=== PATIENT | female | born 1950 | race Caucasian/White ===

== ENCOUNTER 2017-11-09 10:00 | Day surgery (SDC) | payer MEDICARE, OTHER ==
[~2017-11-09] VITALS: Ht 157.5 cm; Wt 69.0 kg
[~2017-11-09 10:00] MED LIST: ALBU90OI INH; ATOR10; ATOR20 PO; CAND32 PO; CEPH500 PO; CLOP75 PO; CYCL10 PO; Cilostazol50 MG PO; DIAZ5 PO; DOCU100 PO; ELIQUIS5 M1 PO; FURO20 PO; FURO40 PO; GEMF600 PO; HYDACE5 PO; HYDGUAL120 PO; Isosorbide Dini30 MG PO; LABE100 PO; LEVFLO500 PO; LEVO750 PO; LIDO5TO TOP; METF500 PO; METO100ER PO; METO50ER; METO50ER PO; MULTIVITAMINS; NITR.4SL SL; Nitrostat0.4 MG SL; ONDA4 PO; OXYC10TA19 PO; OXYC15ER PO; POTA10T PO; POTCHL20ER PO; PRED10 PO; PRED20 PO; Prednisone20 MG PO; RANO500T; RANO500T PO; SIME80CH PO; SPIHYD; SPIR25 UD; TIOT18 INH; TOLT2ER PO; TORSE20 PO
[2017-11-09] MEDS ORDERED: CLOP75 (14:53)
== END 2017-11-09 18:55 | disposition home or self-care (01) ==
LOC: MHTC 10:00 → PCU 15:32 → MHTC 18:55
PROC: B211YZZ Fluoroscopy of Multiple Coronary Arteries using Other Contrast (ICD-10-PCS; principal; 2017-11-09)
PROC: 4A023N7 Measurement of Cardiac Sampling and Pressure, Left Heart, Percutaneous Approach (ICD-10-PCS; principal; 2017-11-09)
PROC: B212YZZ Fluoroscopy of Single Coronary Artery Bypass Graft using Other Contrast (ICD-10-PCS; principal; 2017-11-09)
PROC: B218YZZ Fluoroscopy of Left Internal Mammary Bypass Graft using Other Contrast (ICD-10-PCS; principal; 2017-11-09)
DX: I25.118 Atherosclerotic heart disease of native coronary artery with other forms of angina pectoris (principal); I25.718 Atherosclerosis of autologous vein coronary artery bypass graft(s) with other forms of angina pectoris; E78.00 Pure hypercholesterolemia, unspecified; I10 Essential (primary) hypertension; F17.210 Nicotine dependence, cigarettes, uncomplicated; J44.9 Chronic obstructive pulmonary disease, unspecified
CPT/HCPCS: 36221; 82947; 85347; 92978; 93459; 99152; 99153; C1725; C1753; C1769; C1874; C1894; C9604; J1644; J2250; J2270; J3010; J7030; J7040; Q9967

== ENCOUNTER 2018-03-16 20:54 | Emergency (ER) | payer MEDICARE, OTHER ==
[~2018-03-16] VITALS: Ht 157.5 cm; Wt 68.0 kg
[~2018-03-16 20:54] MED LIST changes: +CLOP75
[2018-03-16] MEDS ORDERED: CLOP75 PO (21:11)
[2018-03-16] MEDS ORDERED: Omeprazole20 M1 (21:12)
[2018-03-16] MEDS ORDERED: HYDCHL25 PO (21:12)
== END 2018-03-16 21:25 | disposition home or self-care (01) ==
LOC: ER 20:54
DX: S61.432A Puncture wound without foreign body of left hand, initial encounter (principal); W26.0XXA Contact with knife, initial encounter; Z88.6 Allergy status to analgesic agent; Z91.048 Other nonmedicinal substance allergy status; Z88.8 Allergy status to other drugs, medicaments and biological substances; Z88.1 Allergy status to other antibiotic agents; Z88.5 Allergy status to narcotic agent; Z79.899 Other long term (current) drug therapy; Z79.84 Long term (current) use of oral hypoglycemic drugs; I11.0 Hypertensive heart disease with heart failure; I50.9 Heart failure, unspecified; I25.10 Atherosclerotic heart disease of native coronary artery without angina pectoris; F17.200 Nicotine dependence, unspecified, uncomplicated
CPT/HCPCS: 90471; 90714; 99282

== ENCOUNTER → 2019-02-11 | Outpatient (CLI) | payer MEDICARE, OTHER ==
[~2019-02-11] MED LIST changes: +HYDCHL25 PO; +Omeprazole20 M1
[2019-02-11 10:38] LABS: Source, Urine Clean Catch
[2019-02-11 13:13] LABS: Bilirubin, Urine Neg (Neg); Blood, Urine 1+ (Neg); Glucose Qualitative, Urine Neg (Neg); Ketones, Urine Neg (Neg); Leukocyte Esterase, Urine Neg (Neg); Nitrite, Urine Neg (Neg); Protein, Urine 2+ (Neg); Urobilinogen, Urine NORM (Normal)
[2019-02-11 14:18] LABS: Appearance, Urine Clear (Clear); Color, Urine Yellow (P-Yellow)
[2019-02-11 14:21] LABS: Bacteria Rare /hpf; Red Blood Cells, Urine 0-2 /hpf (0-2); Squamous Epithelial Cells Many /hpf (Few); White Blood Cells, Urine 0-2 /hpf (0-5)
== END | disposition home or self-care (01) ==
LOC: LAB SHORT 10:37 → LAB 10:37
PROVIDERS: Urology
DX: R30.0 Dysuria (principal)
CPT/HCPCS: 81001; 87086

== ENCOUNTER → 2019-02-15 | Outpatient (CLI) | payer MEDICARE, OTHER ==
[2019-02-15 10:53] LABS: Source, Urine Clean Catch
[2019-02-15 12:50] LABS: Bilirubin, Urine Neg (Neg); Blood, Urine 1+ (Neg); Glucose Qualitative, Urine Neg (Neg); Ketones, Urine Neg (Neg); Leukocyte Esterase, Urine Neg (Neg); Nitrite, Urine Neg (Neg); Protein, Urine 1+ (Neg); Urobilinogen, Urine NORM (Normal)
[2019-02-15 12:59] LABS: Appearance, Urine Clear (Clear); Color, Urine Yellow (P-Yellow)
[2019-02-15 13:01] LABS: Bacteria Few /hpf; Squamous Epithelial Cells Few /hpf (Few); White Blood Cells, Urine 0-2 /hpf (0-5)
== END | disposition home or self-care (01) ==
LOC: LAB 10:51 → LAB SHORT 10:51
PROVIDERS: Urology
DX: R30.0 Dysuria (principal)
CPT/HCPCS: 81001; 87086

== ENCOUNTER 2019-08-14 21:08 | Inpatient (IN) | payer MEDICARE, OTHER ==
[~2019-08-14] VITALS: Ht 157.5 cm; Wt 74.9 kg
[~2019-08-14 21:08] MED LIST changes: -ELIQUIS5 M1 PO; +ELIQUIS5 MG PO; +MOTION RELIEF25 MG PO; +OMEPRAZOLE20 MG PO; -Omeprazole20 M1; +SPIR25 PO; -SPIR25 UD
[2019-08-14 21:38] LABS: BASOPHILS ABSOLUTE AUTO 0.05 K/mm3 (0.00-0.23); BASOPHILS PERCENT AUTO 1 % (0-2); EOSINOPHILS ABSOLUTE AUTO 0.32 K/mm3 (0.00-0.68); EOSINOPHILS PERCENT AUTO 4 % (0-6); Hematocrit 45.2 % (33.0-51.0); Hemoglobin 14.3 g/dL (11.5-16.0); IMMATURE GRAN ABSOLUTE AUTO 0.03 K/mm3 (0.00-0.10); IMMATURE GRAN PERCENT AUTO 0 % (0-1); LYMPHOCYTES ABSOLUTE AUTO 2.63 K/mm3 (0.84-5.20); LYMPHOCYTES PERCENT AUTO 33 % (21-46); MONOCYTES ABSOLUTE AUTO 0.54 K/mm3 (0.16-1.47); MONOCYTES PERCENT AUTO 7 % (4-13); Mean Corpuscular HGB 29.3 pg (26.0-34.0); Mean Corpuscular HGB Conc 31.6 g/dL (31.5-36.5); Mean Corpuscular Volume 93 fL (80-100); Mean Platelet Volume 10.6 fL (9.1-12.4); NEUTROPHILS ABSOLUTE AUTO 4.32 K/mm3 (1.96-9.15); NEUTROPHILS PERCENT AUTO 55 % (41-73); Platelet Count 216 K/mm3 (150-400); RDW Coefficient Variation 15.3 % (11.7-14.2); RDW Standard Deviation 52.6 fL (35.1-46.3); Red Blood Cell Count 4.88 M/mm3 (3.80-5.20); White Blood Cell Count 7.89 K/mm3 (4.00-11.30)
[2019-08-14] MEDS ORDERED: PANT40 PO (21:51)
[2019-08-14 21:53] LABS: Alanine Aminotransfer (ALT/SGP 15 U/L (12-78); Albumin, Blood 3.1 g/dL (3.4-5.0); Albumin/Globulin Ratio 0.8 (0.8-1.8); Alk Phos 96 U/L (50-136); Anion Gap 2 mmol/L (6-16); Aspartate Aminotrans (AST/SGOT 23 U/L (12-37); Bilirubin, Total 0.3 mg/dL (0.1-1.0); Blood Urea Nitrogen 16 mg/dL (8-24); Bun/Creatinine Ratio 14.4 (12.0-20.0); CO2, Blood 29 mmol/L (21-32); Calcium, Blood 8.3 mg/dL (8.5-10.1); Chloride, Blood 110 mmol/L (98-108); Creatinine, Blood 1.11 mg/dL (0.40-1.00); Glomerular Filtration Rate 52 (60-); Glucose, Blood 118 mg/dL (70-99); Potassium, Blood 4.6 mmol/L (3.5-5.5); Sodium, Blood 141 mmol/L (136-145); Total Protein, Blood 7.1 g/dL (6.4-8.2); Troponin I <0.015 ng/mL (0.000-0.040)
[2019-08-15 00:28] LABS: International Normalized Ratio 1.01; Prothrombin Time Results 10.8 Sec (9.7-11.5)
--- NOTE | 2019-08-15 08:50 | NUR ---
SHIFT SUMMARY PT A&O; ARRIVED FROM ER VIA STRETCHER AND TRANSFERED SELF TO BED; AMBULATES TO BATHROOM W/ NO DISTURBANCES; INCONTINENT IF WAITS TO LONG; PT ORIENTED TO ROOM AND SANDWICH, PUDDING AND WATER BROUGHT TO PT; HEPARIN GTT INFUSING UPON ARRIVAL PT HAS HX OF DVT; HX CARDIAC INTERVENTIONS- BYPASS; PT GOOD HISTORIAN W/ PAST INTERVENTIONS AND MEDICATIONS; SIGNIFICANT ALLERGY LIST; PT DENIES CHEST PAIN; DENIES NEEDS; CALL LIGHT IN REACH; BED IN LOWEST POSITION; REPORT GIVEN TO DAY SHIFT RN.
--- NOTE | 2019-08-15 20:44 | NUR ---
SHIFT SUMMARY PT REMAINS A&O X4, NO EPISODES OF CP/SOB REPORTED THROUGH THE SHIFT. PT IS ON ROOM AIR, TOLERATING PO INTAKE. HEPARIN GTT INFUSING PER EMAR @ 16 U/KG. PT HAD THE 1ST PORTION OF HER STRESS TEST COMPLETED TODAY WITH NO PROBLEMS, 2ND PORTION TO FOLLOW TOMORROW. PT IS AWARE OF NPO STATUS IN THE AM. PT HAS BEEN SINUS PER THEOLOGY PROFESSOR, HTN NOTED. PT EDUCATION PROVIDED THROUGH THE DAY. REPORT GIVEN TO YASMANY RN. CALL LIGHT IN REACH.
--- NOTE | 2019-08-15 21:28 | NUR ---
PATIENT ANXIOUS - MULTIPLE FRIENDS/FAMILY IN ROOM PATIENT DEMANDED TO GO OUT AND SMOKE. PATIENT EDUCATED THAT WITH A HEPARIN GTT SHE COULD NOT GO OUT AND SMOKE. PATIENT ALSO EDUCATED TO SMOKING CESSATION IT RELATES TO HER CURRENT CHEST PAIN DIAGNOSIS. PATIENT SOB WITH MINIMAL EXCERTION. SAT PATIENT IN CHAIR AND REDIRECTED WITH CONVERSATION. PATIENT COMPLIED AND CALMED WITH THERAPUTIC COMMUNICATION AND REDIRECTION. FAMILY EDUCATED WELL THAT PATIENT COULD NOT GO SMOKE. PRIMARY CARE RN LOOKING INTO NICOTINE PATCH PER PATIENT REQUEST.
--- NOTE | 2019-08-15 22:40 | NUR ---
CARE ASSUMPTION / CALL TO PT A&O X4 W/ EPISODES OF FORGETFULNESS. PT INFORMED THIS NURSE NEW TO PT, W/ PT STATING "THIS MORNING YOU SAID.." AND "WEREN'T YOU THE ONE WHO DID MY MEDS LAST NIGHT?" DESPITE REMINDER OF THIS NURSE NEW TO PT's CARE. PT C/O 03/12 "STERNUM & L LEG" PAIN, MEDICATED PER PT REQUEST/EMAR. PT W/ ELEVATED BP, 200/105 UPON CARE ASSUMPTION. PT MEDICATED W/ SCHEDULED BP MEDICATION & PRN HYDRALAZINE PER EMAR W/ LITTLE CHANGE IN BP. PT ALSO REPORTING SMOKING "ABOUT A PACK A DAY", REQUESTING NICOTINE PATCH. CALL TO MD STEVENS W/ NEW ORDERS TO RESUME PT'S HOME METOPROLOL, SEE EMAR, AND NEW ORDER FOR NICOTINE PATCH, SEE EMAR. PT NOW SETTLED IN ROOM, WILL CONTINUE TO MONITOR AND PROVIDE CARE.
[2019-08-16 00:23] LABS: Hematocrit 45.1 % (33.0-51.0); Hemoglobin 14.7 g/dL (11.5-16.0); Mean Corpuscular HGB 29.8 pg (26.0-34.0); Mean Corpuscular HGB Conc 32.6 g/dL (31.5-36.5); Mean Corpuscular Volume 92 fL (80-100); Mean Platelet Volume 10.5 fL (9.1-12.4); Platelet Count 209 K/mm3 (150-400); RDW Standard Deviation 50.8 fL (35.1-46.3); Red Blood Cell Count 4.93 M/mm3 (3.80-5.20); White Blood Cell Count 11.12 K/mm3 (4.00-11.30)
[2019-08-16 00:38] LABS: Calcium, Blood 8.5 mg/dL (8.5-10.1); Creatinine, Blood 1.22 mg/dL (0.40-1.00); Potassium, Blood 3.9 mmol/L (3.5-5.5)
--- NOTE | 2019-08-16 05:12 | NUR ---
SHIFT SUMMARY PT CONTINUES TO BE A&O X4. VSS W/ BP IMPROVEMENT POST TREATMENTS PER EMAR. MONITOR SHOWS SR, HR 70's-90's. NICOTINE PATCH IN PLACE. PT CALM AND ABLE TO SLEEP THIS SHIFT. PT W/ OKAY FOR BREAKFAST THIS AM W/ PLAN TO THEN BE NPO FOR STRESS TEST @ 1400. PT AGREEABLE. WILL CONTINUE TO MONITOR AND PROVIDE CARE UNTIL REPORT OFF TO DAY SHIFT RN.
--- NOTE | 2019-08-16 11:35 | NUR ---
BEDSIDE REPORT REC'D FROM CAITIE BLOUNT. PT AWAKE, A&O, HEPARIN GTT DOSING CONFIRMED. PT DENIES ANY NEEDS AT THIS TIME. CALL LIGHT IN REACH. 0900- AM MEDS GIVEN, BFAST PROVIDED. PT HAS BEEN NPO SINCE 0810. PAIN MEDS GIVEN REQUESTED. 1130-PT NPO FOR 1400 PROCEDURE. HEP GTT RATE CHANGE DONE EARLIER WHEN PHARMACY CALLED. PT AWAKE IN BED WATCHING TV. NADN. CALL LIGHT IN REACH.
--- NOTE | 2019-08-16 14:15 | NUR ---
Echocardiogram completed.
--- NOTE | 2019-08-16 19:00 | NUR ---
REPORT FROM KATHERINE RN. ASSUMED PT CARE. PT FAMILY AT BEDSIDE. DENIES CURRENT NEEDS. PT EATING.
--- NOTE | 2019-08-16 19:19 | NUR ---
PT HAD UNEVENTFUL DAY. STRESS TEST NEG. POSS DC IN AM. PT'S MOOD ALL OVER THE PLACE TODAY BEFORE AND AFTER VISIT FROM SO. PT DENIED REGULAR INTAKE OF ETOH, BUT MANNERISMS APPEARED SIMILAR TO ETOH WD. VERY SLEEPY THIS AFTERNOON. NO CHANGES, NO CP. MED TWICE FOR REGULAR STERNAL AND LEG PAIN. BEDSIDE REPORT GIVEN TO ANDREINA BLOUNT. CALL LIGHT IN REACH. DAUGHTER AT BEDSIDE.
--- NOTE | 2019-08-16 20:25 | NUR ---
VSS. ASSESSMENT CHARTED. PT DENIES PAIN. STATES SHE HAD A VERY LONG DAY TODAY. PT EATING WELL AND INDEPENDENT IN ROOM. MEDS GIVEN PER EMAR.
--- NOTE | 2019-08-16 22:46 | NUR ---
PT APPEARS TO BE SLEEPING IN POSITION OF COMFORT. RESP EVEN AND NON LABORED. LIGHTS ARE OFF. DOOR SHUT FOR NOISE CONTROL.
--- NOTE | 2019-08-17 05:45 | NUR ---
SHIFT SUMMARY PT ALERT AND ORIENTED WHEN AWAKE, VSS. REMAINS ON RA. PT HAD UNEVENTFUL NIGHT. INDEPENDENT IN ROOM. HEPARIN STILL INFUSING PER PHARMACY. PT DENIES SOB/CP. PLAN FOR POSS DC HOME TODAY.
[2019-08-17] MEDS ORDERED: CARV25 PO (09:28)
[2019-08-17] MEDS ORDERED: GUAI600T33 PO (09:28)
[2019-08-17] MEDS ORDERED: BENZ100A PO (09:28)
[2019-08-17] MEDS ORDERED: Prednisone10 MG PO (09:29)
[2019-08-17] MEDS ORDERED: ALBU90OI INH (09:36)
--- NOTE | 2019-08-17 10:40 | NUR ---
BEDSIDE REPORT FROM NEENA BLOUNT. LIGHTS OFF, PT APPEARS TO BE SLEEPING. HEP GTT COMPLETE. CALLED DR. VILLALOBOS HEP DC'D. VSS. BP ELEVATED. COREG INCREASED. INCREASED DOSE GIVEN THIS AM. DC PLANNED THIS AM. TELE OFF FOR SHOWER. IV DC'D AT 0900. AM MEDS GIVEN. DISCHARGE INFO COMPLETE. WRITEN AND VERBAL INSTRUCTIONS ISSUED AND REVIEWED UNTIL PT STATED UNDERSTANDING OF MED CHANGES. RIDE ON HIS WAY. CONFIRMED NICOTINE PATCH OFF AND DECLINED NEW PATCH. DISCUSSED SMOKING CESSATION IN ADDITION TO WRITTEN INSTRUCIONS. PT DID NOT DISPLAY DESIRE TO QUIT. PT ESCORTED TO ENTRANCE VIA WC BY JAYA WITH ALL BELONGINGS AT 1006, NADN.
== END 2019-08-17 10:06 | disposition home or self-care (01) | DRG 305 ==
LOC: ER 21:08 → PCU 23:11 → ERHOLD 23:11 → PCU 08-15 02:22
PROVIDERS: Emergency Medicine; Internal Medicine; ADMIT Hospitalist
DX: I16.0 Hypertensive urgency (principal); I50.32 Chronic diastolic (congestive) heart failure; J44.1 Chronic obstructive pulmonary disease with (acute) exacerbation; I82.412 Acute embolism and thrombosis of left femoral vein; N17.9 Acute kidney failure, unspecified; Z95.1 Presence of aortocoronary bypass graft; E78.5 Hyperlipidemia, unspecified; I11.0 Hypertensive heart disease with heart failure; F17.210 Nicotine dependence, cigarettes, uncomplicated; E11.51 Type 2 diabetes mellitus with diabetic peripheral angiopathy without gangrene; Z79.84 Long term (current) use of oral hypoglycemic drugs
CPT/HCPCS: 36415; 36416; 71046; 78452; 80048; 80053; 82947; 83690; 83880; 84484; 85025; 85027; 85610; 85730; 93005; 93010; 93017; 93308; 93321; 94660; 94762; 96365; 96366; 96375; 96376; 99285-25; A9500; J0360; J0706; J1644; J1940; J2785; J2930; J7512

== ENCOUNTER 2019-08-25 10:16 | Inpatient (IN) | payer MEDICARE, OTHER ==
[~2019-08-25] VITALS: Ht 157.5 cm; Wt 70.4 kg
[~2019-08-25 10:16] MED LIST changes: +BENZ100A PO; +CARV25 PO; +GUAI600T33 PO; +PANT40 PO; +Prednisone10 MG PO
[2019-08-25 10:44] LABS: BASOPHILS ABSOLUTE AUTO 0.06 K/mm3 (0.00-0.23); BASOPHILS PERCENT AUTO 0 % (0-2); EOSINOPHILS ABSOLUTE AUTO 0.12 K/mm3 (0.00-0.68); EOSINOPHILS PERCENT AUTO 1 % (0-6); Hematocrit 48.7 % (33.0-51.0); Hemoglobin 15.8 g/dL (11.5-16.0); IMMATURE GRAN ABSOLUTE AUTO 0.19 K/mm3 (0.00-0.10); IMMATURE GRAN PERCENT AUTO 1 % (0-1); LYMPHOCYTES ABSOLUTE AUTO 2.59 K/mm3 (0.84-5.20); LYMPHOCYTES PERCENT AUTO 19 % (21-46); MONOCYTES ABSOLUTE AUTO 0.96 K/mm3 (0.16-1.47); MONOCYTES PERCENT AUTO 7 % (4-13); Mean Corpuscular HGB 29.6 pg (26.0-34.0); Mean Corpuscular HGB Conc 32.4 g/dL (31.5-36.5); Mean Corpuscular Volume 91 fL (80-100); Mean Platelet Volume 10.3 fL (9.1-12.4); NEUTROPHILS ABSOLUTE AUTO 9.72 K/mm3 (1.96-9.15); NEUTROPHILS PERCENT AUTO 71 % (41-73); Platelet Count 212 K/mm3 (150-400); RDW Coefficient Variation 15.9 % (11.7-14.2); RDW Standard Deviation 53.1 fL (35.1-46.3); Red Blood Cell Count 5.34 M/mm3 (3.80-5.20); White Blood Cell Count 13.64 K/mm3 (4.00-11.30)
[2019-08-25 11:06] LABS: Alanine Aminotransfer (ALT/SGP 19 U/L (12-78); Albumin, Blood 3.3 g/dL (3.4-5.0); Albumin/Globulin Ratio 0.9 (0.8-1.8); Alk Phos 75 U/L (50-136); Anion Gap 8 mmol/L (6-16); Aspartate Aminotrans (AST/SGOT 14 U/L (12-37); Bilirubin, Total 0.8 mg/dL (0.1-1.0); Blood Urea Nitrogen 33 mg/dL (8-24); Bun/Creatinine Ratio 22.3 (12.0-20.0); CO2, Blood 26 mmol/L (21-32); Calcium, Blood 8.2 mg/dL (8.5-10.1); Chloride, Blood 100 mmol/L (98-108); Creatinine, Blood 1.48 mg/dL (0.40-1.00); Globulin, Blood 3.6 g/dL (2.2-4.0); Glomerular Filtration Rate 37 (60-); Glucose, Blood 207 mg/dL (70-99); Potassium, Blood 4.3 mmol/L (3.5-5.5); Sodium, Blood 134 mmol/L (136-145); Total Protein, Blood 6.9 g/dL (6.4-8.2); Troponin I <0.015 ng/mL (0.000-0.040)
[2019-08-25 11:43] LABS: Prothrombin Time Results 10.7 Sec (9.7-11.5)
[2019-08-25] MEDS ORDERED: B-121000 MC3 PO (13:10)
[2019-08-25] MEDS ORDERED: MOTION RELIEF25 MG PO (15:45)
[2019-08-25] MEDS ORDERED: PANT40 PO (15:48)
--- NOTE | 2019-08-25 16:33 | NUR ---
INFORMED DR. KWAN THAT PATIENT HAS SHINGLES ON HER R BUTTOCKS AND R FLANK. PATIENT REPORTS "I GET THESE EVERY ONCE IN A WHILE". DR. KWAN ALSO INFORMED THAT PATIENT'S MED REC IS NOW COMPLETE.
--- NOTE | 2019-08-25 17:19 | NUR ---
REPORT GIVEN TO ASSUMING NURSE, MATEO ARTEAGA.
[2019-08-25 18:45] LABS: Source, Urine Clean Catch
[2019-08-25 18:49] LABS: Bilirubin, Urine Neg (Neg); Blood, Urine Neg (Neg); Glucose Qualitative, Urine Neg (Neg); Ketones, Urine Neg (Neg); Leukocyte Esterase, Urine Neg (Neg); Nitrite, Urine Neg (Neg); Protein, Urine Neg (Neg); Urobilinogen, Urine NORM (Normal); pH, Urine 6.5 (5.0-8.0)
[2019-08-25 18:58] LABS: Appearance, Urine Clear (Clear); Color, Urine Yellow (P-Yellow)
--- NOTE | 2019-08-25 19:15 | NUR ---
PT ALERT, RESTING IN BED, DENIES PAIN. NO DRIPS.
--- NOTE | 2019-08-25 19:45 | NUR ---
CARE ASSUMED AT 1720. PT AWAKE IN BED VISITING AT THIS TIME. PT DENIED C/O PAIN. PT STATED THAT SHE WAS FATIGUED AND DESCRIBED GENERALIZED MALAISE. "SHINGLES" ASSESSED. SMALL 1CM BLISTER TO RIGHT BUTTOCK WITH SMALL AMT OF REDNESS AND WARM CIRCLING BLISTER. THIS SORE LOOKS ALMOST LIKE A SMALL ABCESS. URINE SAMPLE SENT WELL PCR/RESP SAMPLE. PT SBA TO TOILET. VSS. O2 PLACED ON PT AROUND 1730 FOR SOME DESATURATION INTO 80'S WHILE SLEEPING ONLY. REPORT GIVEN TO MIAH BLOUNT AT 1920.
[2019-08-25 22:03] LABS: Adenovirus Not Detected (NOT DETECT); Coronavirus 229E Not Detected (NOT DETECT); Coronavirus HKU1 Not Detected (NOT DETECT); Coronavirus NL63 Not Detected (NOT DETECT); Coronavirus OC43 Not Detected (NOT DETECT); Human Metapneumovirus Not Detected (NOT DETECT); Human Rhinovirus/Enterovirus Not Detected (NOT DETECT)
[2019-08-25 22:04] LABS: Bordetella pertussis Not Detected (NOT DETECT); Chlamydophila pneumoniae Not Detected (NOT DETECT); Influenza A Not Detected (NOT DETECT); Influenza A/2009-H1 Not Detected (NOT DETECT); Influenza A/H1 Not Detected (NOT DETECT); Influenza A/H3 Not Detected (NOT DETECT); Influenza B Detected (NOT DETECT); Mycoplasma pneumoniae Not Detected (NOT DETECT); Parainfluenza Virus 1 Not Detected (NOT DETECT); Parainfluenza Virus 2 Not Detected (NOT DETECT); Parainfluenza Virus 3 Not Detected (NOT DETECT); Parainfluenza Virus 4 Not Detected (NOT DETECT); Respiratory Syncytial Virus Not Detected (NOT DETECT)
[2019-08-26 03:53] LABS: BASOPHILS ABSOLUTE AUTO 0.03 K/mm3 (0.00-0.23); BASOPHILS PERCENT AUTO 0 % (0-2); EOSINOPHILS PERCENT AUTO 1 % (0-6); Hematocrit 45.6 % (33.0-51.0); Hemoglobin 14.4 g/dL (11.5-16.0); IMMATURE GRAN ABSOLUTE AUTO 0.16 K/mm3 (0.00-0.10); IMMATURE GRAN PERCENT AUTO 1 % (0-1); LYMPHOCYTES ABSOLUTE AUTO 2.54 K/mm3 (0.84-5.20); LYMPHOCYTES PERCENT AUTO 23 % (21-46); MONOCYTES ABSOLUTE AUTO 0.92 K/mm3 (0.16-1.47); MONOCYTES PERCENT AUTO 8 % (4-13); Mean Corpuscular HGB 29.4 pg (26.0-34.0); Mean Corpuscular HGB Conc 31.6 g/dL (31.5-36.5); Mean Corpuscular Volume 93 fL (80-100); Mean Platelet Volume 10.2 fL (9.1-12.4); NEUTROPHILS ABSOLUTE AUTO 7.55 K/mm3 (1.96-9.15); NEUTROPHILS PERCENT AUTO 67 % (41-73); Platelet Count 179 K/mm3 (150-400); RDW Coefficient Variation 15.9 % (11.7-14.2); RDW Standard Deviation 54.4 fL (35.1-46.3)
[2019-08-26 04:19] LABS: Albumin, Blood 2.8 g/dL (3.4-5.0); Albumin/Globulin Ratio 0.9 (0.8-1.8); Bilirubin, Total 0.8 mg/dL (0.1-1.0); Bun/Creatinine Ratio 24.2 (12.0-20.0); Calcium, Blood 8.1 mg/dL (8.5-10.1); Creatinine, Blood 1.24 mg/dL (0.40-1.00); Globulin, Blood 3.2 g/dL (2.2-4.0); Potassium, Blood 4.3 mmol/L (3.5-5.5)
--- NOTE | 2019-08-26 08:02 | NUR ---
PT ALERT, FOLLOWS COMMANDS ABLE TO AMBULATE TO TOILET. PAIN CONTROLLED WITH TING OXY. PT MAINTAINED SATS ON 3L O2 OVERNIGHT. NO ACUTE EVENT WILL CONTINUE TO MONITOR
--- NOTE | 2019-08-26 09:00 | NUR ---
ASSUMED CARE RECIEVED REPORT FROM MINE BOOTHE. I TOOK OVER CARE DUE TO THE HIGH ACUITY OF TL'S TWO OTHER PATIENTS. PT IS AWAKE IN BED, A & O X 4. SHE DENIES PAIN AFTER RECEIVING HER SCHEDULED OXYCODONE. SHE HAS SCD'S ON. SHE IS IN SINUS RHYTHM WITH STABLE VITALS. SHE IS ON 2L NC STARTING OUT BUT COMPLAINS OF SOB, SATS ARE 94%+. BED LOW AND LOCKED. CALL LIGHT WITHIN REACH.
--- NOTE | 2019-08-26 19:07 | NUR ---
SHIFT SUMMARY PT REMAINS ALERT AND ORIENTED X 4. SHE IS ON 2L NC, SATING MID TO HIGH 90'S. SHE IS IN SINUS RHYTHM WITH A RATE IN THE 60'S, BLOOD PRESSURE STARTED OUT LOWER FOR HER BASELINE, BUT HER LAST SBP WAS IN THE 140'S WHICH PT STATES IS CLOSER TO HER BASELINE. SHE STATES SHE FEELS BETTER, CHEST PAIN HAS SUBSIDED FOR NOW, AND HER LEFT LEG WAS BOTHERING HER TOO (SHE BELIEVES THIS IS FROM NEUROPATHY), BUT IS BEING TREATED ADEQUETLY WITH THE OXY. HER COMPLAINT TODAY WAS SOB, DESPITE HAVING GOOD O2 SATS. HER LUNGS SOUND CLEAR AND DIMINISHED, OCCASIONAL WHEEZES. RESPIRATORY TREATMENTS HAVE BEEN OFFERING SOME RELIEF, BUT NOT MUCH SHE STATES. SHE HAD A BATH TODAY. SHE COMPLAINS OF NUMBNESS IN HER TOES. BED LOW AND LOCKED. CALL LIGHT WITHIN REACH.
--- NOTE | 2019-08-26 20:00 | NUR ---
ASSUMED CARE OF PATIENT AT 1915. REPORT RECEIVED AT BEDSIDE. PT PRESENTS IN BED. ALERT AND ORIENTED. PT HAS BEEN ABLE TO GET UP IN ROOM INDEPENDENTLY. VOIDS Q.S. PT IN NO APPARENT DISTRESS AT THIS TIME. TEACHING DONE ON DISEASE PROCESS, DIABETES, BLOOD PRESSURES, AND DIET. WILL REVIEW CHART AND PLAN OF CARE FOR THIS PT.
[2019-08-27 03:30] LABS: BASOPHILS ABSOLUTE AUTO 0.03 K/mm3 (0.00-0.23); BASOPHILS PERCENT AUTO 0 % (0-2); EOSINOPHILS ABSOLUTE AUTO 0.04 K/mm3 (0.00-0.68); EOSINOPHILS PERCENT AUTO 0 % (0-6); Hematocrit 43.5 % (33.0-51.0); Hemoglobin 13.6 g/dL (11.5-16.0); IMMATURE GRAN ABSOLUTE AUTO 0.07 K/mm3 (0.00-0.10); IMMATURE GRAN PERCENT AUTO 1 % (0-1); LYMPHOCYTES ABSOLUTE AUTO 1.67 K/mm3 (0.84-5.20); LYMPHOCYTES PERCENT AUTO 13 % (21-46); MONOCYTES ABSOLUTE AUTO 0.88 K/mm3 (0.16-1.47); MONOCYTES PERCENT AUTO 7 % (4-13); Mean Corpuscular HGB 29.1 pg (26.0-34.0); Mean Corpuscular HGB Conc 31.3 g/dL (31.5-36.5); Mean Corpuscular Volume 93 fL (80-100); Mean Platelet Volume 10.1 fL (9.1-12.4); NEUTROPHILS ABSOLUTE AUTO 10.62 K/mm3 (1.96-9.15); NEUTROPHILS PERCENT AUTO 80 % (41-73); Platelet Count 175 K/mm3 (150-400); RDW Coefficient Variation 15.6 % (11.7-14.2); RDW Standard Deviation 53.5 fL (35.1-46.3); Red Blood Cell Count 4.67 M/mm3 (3.80-5.20); White Blood Cell Count 13.31 K/mm3 (4.00-11.30)
[2019-08-27 03:49] LABS: Albumin, Blood 2.9 g/dL (3.4-5.0); Anion Gap 5 mmol/L (6-16); Blood Urea Nitrogen 28 mg/dL (8-24); CO2, Blood 29 mmol/L (21-32); Calcium, Blood 8.6 mg/dL (8.5-10.1); Chloride, Blood 102 mmol/L (98-108); Creatinine, Blood 1.12 mg/dL (0.40-1.00); Glomerular Filtration Rate 51 (60-); Glucose, Blood 137 mg/dL (70-99); Magnesium, Blood 2.3 mg/dL (1.6-2.4); Phosphorus, Blood 3.4 mg/dL (2.5-4.9); Potassium, Blood 4.5 mmol/L (3.5-5.5); Sodium, Blood 136 mmol/L (136-145)
--- NOTE | 2019-08-27 06:36 | NUR ---
PT HAD AN EPISODE DURING THE NIGHT WHERE SHE DECIDED TO TAKE OFF HER OXYGEN. ON ROOM AIR SHE DESATURATED TO 79 PERCENT. REPLACED OXYGEN, AND INCREASED FLOW TO 4 L/M. PT ALSO ENCOURAGED TO COUGH DEEPLY. PT SATURATIONS INCREASED TO > 90 PERCENT. HAS NOT REMOVED HER OXYGEN AFTER THIS. WILL CONTINUE TO MONITOR PT, AND WILL REPORT OFF TO ONCOMING RN.
--- NOTE | 2019-08-27 08:02 | NUR ---
ASSUMED CARE RECIEVED REPORT FROM MINE HUITRON. PT IS LYING IN BED ALERT AND ORIENTED, AND IS COMPLAINING OF CP AND LEFT LEG NEUROPATHIC PAIN. WILL MEDICATE. PT IS IN SINUS RHYTHM, RATE IN THE 60'S, STABLE BP. SHE IS ON 2L NC, SATING 95%. BED LOW AND LOCKED. CALL LIGHT WITHIN REACH.
--- NOTE | 2019-08-27 18:33 | NUR ---
SHIFT SUMMARY PT HAD A GOOD DAY, NO ACUTE EVENTS. PT WAS OFF OXYGEN FOR MAJORITY OF DAY SAT'ING 92-94%, LESS DYSPNEIC THAN USUAL. ALTHOUGH DURING HER LATE AFTERNOON NAP SHE DE-SATTED AND REQUIRED 2LNC WHILE ASLEEP. HER PAIN HAS BEEN ADEQUETLY CONTROLLED WITH HER SCHEDULED OXYCODONE. SHE IS ALERT AND ORIENTED X 4, WITH A LITTLE LETHARGY. SHE CONTINUES TO STATE THAT SHE "DOESNT QUITE FEEL LIKE HERSELF" SHE SOMETIMES HAS TROUBLE THINKING CLEARLY. 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 PEARLA. SHE IS EATING 40-70% OF HER MEALS, DRINKING PLENTY OF FLUIDS. BED LOW AND LOCKED. CALL LIGHT WITHIN REACH.
--- NOTE | 2019-08-27 19:56 | NUR ---
ASSUMPTION OF CARE ASSUMED CARE OF PT @ 1900, PT RESTING IN BED, AROUSES TO VERBAL STIMULI, ORIENTED TO SELF, PLACE, SITUATION FAMILY AND FOLLOWING DIRECTIONS. SOME CONFUSION AND SHORT TERM MEMORY DEFECITS NOTED, REPORT FROM DAYSHIFT STATES PT RECEIVED DOSE OF BENADRYL ADMINISTERED @ APPROX 1700, MEMORY WAS INTACT AND NO CONFUSION PRIOR TO ADMINISTRATION, WILL CONTINUE TO MONITOR NEURO STATUS. RESPIRATIONS EVEN AND UNLABORED, PT DENIES SOB. HR 60, HTN BUT PT STS CURRENT BP IS NORMAL FOR HER, DENIES SOB. PT STS PAIN TO R BUTTOCKS AT LOCATION OF CURRENT SHINGLES OUTBREAK. PT UP TO BEDSIDE TOILET, SBA. PT DENIES GI/ ISSUES. FAMILY AT BEDSIDE, CALL LIGHT WITHIN REACH.
--- NOTE | 2019-08-27 21:16 | NUR ---
LASIX/TRANSFER OF CARE PT DECLINED 2100 LASIX, STS USUALLY TAKES MEDICATION IN THE AM EVERY OTHER DAY WITH POTASSIUM. PT LEFT ICU @ APPROX 2100 VIA GURNEY TO MEDICAL FLOOR. BEDSIDE REPORT GIVEN TO FREDDIE Reddy, MEDICAL FLOOR RN.
[2019-08-28 05:20] LABS: BASOPHILS ABSOLUTE AUTO 0.02 K/mm3 (0.00-0.23); BASOPHILS PERCENT AUTO 0 % (0-2); EOSINOPHILS PERCENT AUTO 0 % (0-6); Hematocrit 43.2 % (33.0-51.0); Hemoglobin 13.5 g/dL (11.5-16.0); IMMATURE GRAN ABSOLUTE AUTO 0.13 K/mm3 (0.00-0.10); IMMATURE GRAN PERCENT AUTO 1 % (0-1); LYMPHOCYTES ABSOLUTE AUTO 1.56 K/mm3 (0.84-5.20); LYMPHOCYTES PERCENT AUTO 11 % (21-46); MONOCYTES ABSOLUTE AUTO 0.66 K/mm3 (0.16-1.47); MONOCYTES PERCENT AUTO 5 % (4-13); Mean Corpuscular HGB 29.2 pg (26.0-34.0); Mean Corpuscular HGB Conc 31.3 g/dL (31.5-36.5); Mean Corpuscular Volume 94 fL (80-100); Mean Platelet Volume 10.5 fL (9.1-12.4); NEUTROPHILS ABSOLUTE AUTO 12.16 K/mm3 (1.96-9.15); NEUTROPHILS PERCENT AUTO 84 % (41-73); Platelet Count 176 K/mm3 (150-400); RDW Coefficient Variation 15.3 % (11.7-14.2); RDW Standard Deviation 52.6 fL (35.1-46.3); Red Blood Cell Count 4.62 M/mm3 (3.80-5.20); White Blood Cell Count 14.53 K/mm3 (4.00-11.30)
[2019-08-28 05:40] LABS: Albumin/Globulin Ratio 0.8 (0.8-1.8); Bilirubin, Total 0.4 mg/dL (0.1-1.0); Bun/Creatinine Ratio 26.5 (12.0-20.0); Calcium, Blood 8.9 mg/dL (8.5-10.1); Creatinine, Blood 1.13 mg/dL (0.40-1.00); Globulin, Blood 3.9 g/dL (2.2-4.0); Magnesium, Blood 2.2 mg/dL (1.6-2.4); Potassium, Blood 5.1 mmol/L (3.5-5.5); Total Protein, Blood 6.9 g/dL (6.4-8.2)
--- NOTE | 2019-08-28 07:31 | NUR ---
SHIFT SUMMARY PT ARRIVED ON FLOOR IN NO DISTRESS. PT HAD SOME COMPLAINTS OF ITCHINESS AND PO BENEDRYL WAS ORDERED. PT HAS SLEPT WELL W/O ISSUE. PT SLEEPING WITH CALL LIGHT IN REACH.
--- NOTE | 2019-08-28 19:40 | NUR ---
SHIFT SUMMARY: NO ACUTE CHANGES TO REPORT THIS SHIFT. PT A&O; CALM AND COOPERATIVE WITH CARE. MEDICATED FOR PAIN & ITCHING PER EMAR. PT INFLUENZA B POSITIVE; TAMIFLU CONTINUING. REPORT GIVEN TO ONCOMING RN.
--- NOTE | 2019-08-29 05:07 | NUR ---
SHIFT SUMMARY PT HAD NOISSUES NOTED. PT HAS SLEPT WELL SINCE EVENING MEDS. PT FAMILY SHOWERED PT AND VISITED THIS EVENING. PT CURRENTLY SLEEPING AND IN NO DISTRESS. CALL LIGHT IN REACH.
[2019-08-29 05:43] LABS: BASOPHILS ABSOLUTE AUTO 0.03 K/mm3 (0.00-0.23); BASOPHILS PERCENT AUTO 0 % (0-2); EOSINOPHILS ABSOLUTE AUTO 0.01 K/mm3 (0.00-0.68); EOSINOPHILS PERCENT AUTO 0 % (0-6); Hematocrit 46.3 % (33.0-51.0); Hemoglobin 14.6 g/dL (11.5-16.0); IMMATURE GRAN ABSOLUTE AUTO 0.12 K/mm3 (0.00-0.10); IMMATURE GRAN PERCENT AUTO 1 % (0-1); LYMPHOCYTES ABSOLUTE AUTO 1.58 K/mm3 (0.84-5.20); LYMPHOCYTES PERCENT AUTO 12 % (21-46); MONOCYTES ABSOLUTE AUTO 0.61 K/mm3 (0.16-1.47); MONOCYTES PERCENT AUTO 5 % (4-13); Mean Corpuscular HGB 29.4 pg (26.0-34.0); Mean Corpuscular HGB Conc 31.5 g/dL (31.5-36.5); Mean Corpuscular Volume 93 fL (80-100); Mean Platelet Volume 10.3 fL (9.1-12.4); NEUTROPHILS ABSOLUTE AUTO 11.19 K/mm3 (1.96-9.15); NEUTROPHILS PERCENT AUTO 83 % (41-73); Platelet Count 209 K/mm3 (150-400); RDW Coefficient Variation 14.9 % (11.7-14.2); RDW Standard Deviation 51.8 fL (35.1-46.3); Red Blood Cell Count 4.96 M/mm3 (3.80-5.20); White Blood Cell Count 13.54 K/mm3 (4.00-11.30)
[2019-08-29 06:09] LABS: Magnesium, Blood 2.2 mg/dL (1.6-2.4)
[2019-08-29 06:11] LABS: Albumin, Blood 3.1 g/dL (3.4-5.0); Albumin/Globulin Ratio 0.7 (0.8-1.8); Bilirubin, Total 0.3 mg/dL (0.1-1.0); Bun/Creatinine Ratio 30.7 (12.0-20.0); Calcium, Blood 9.2 mg/dL (8.5-10.1); Creatinine, Blood 1.14 mg/dL (0.40-1.00); Globulin, Blood 4.3 g/dL (2.2-4.0); Potassium, Blood 4.4 mmol/L (3.5-5.5); Total Protein, Blood 7.4 g/dL (6.4-8.2)
--- NOTE | 2019-08-29 17:25 | NUR ---
PT AOX4 AND COOPERATIVE OF CARE. PT HAS BEEN DOING WELL TODAY. SHINGLES AREA ON R GLUTEAL DRY AND COVERED. PT WAS ABLE TO BE REMOVED FROM AIRBORNE PRECAUTIONS. PT WALKING WELL ON HER OWN. PT SITTING IN BED AT THIS TIME NO DISTRESS NOTED. WILL CONTINUE TO MONITOR.
--- NOTE | 2019-08-30 06:15 | NUR ---
SHIFT SUMMARY NO ACUTE CHANGES THIS SHIFT. AOX4. VSS. SPO2 @89% ON RA @BEGINNING OF SHIFT, THIS AM PT WAS WEARING 2L O2 & STATED IT MADE HER FEEL BETTER, SPO2 @99%, THEREFORE I DECREASED O2 DOWN TO 1L. E/U RESPIRATIONS, DENIES DYSPNEA OR N/V. REPORTED 8/10 PAIN IN STERNUM & L LEG, MEDICATED W/SCHEDULED OXYCODONE. IND IN ROOM. CALL LIGHT IN REACH, [facility].
[2019-08-30] MEDS ORDERED: DOCU100 PO (11:13)
[2019-08-30] MEDS ORDERED: ACYC800 PO (11:13)
[2019-08-30] MEDS ORDERED: SEEBRI NEOHALER INH (11:16)
[2019-08-30] MEDS ORDERED: LEVO750 PO (11:16)
[2019-08-30] MEDS ORDERED: Duoneb 2.5-0.5 M3 ML INH (11:16)
[2019-08-30] MEDS ORDERED: Nicotine Patch1 EAC5 TOP (11:18)
[2019-08-30] MEDS ORDERED: Tamiflu30 MG PO (11:23)
[2019-08-30] MEDS ORDERED: Prednisone10 MG PO (11:24)
[2019-08-30] MEDS ORDERED: SENN187 PO (11:25)
[2019-08-30] MEDS ORDERED: Florastor250 MG PO (11:25)
--- NOTE | 2019-08-30 12:42 | NUR ---
discharge PT STATE FEELING IMPROVED, NO SHORTNESS OF BREATH @ THIS TIME. STATE CONCERN FOR CONSTIPATION, DR MERAZ IN, STATE SHE MAY GO HOME TODAY AFTER SHE HAS BM. BOWEL MEDS GIVEN W AM MEDS, SHE HAD LRG BM AFTER BF, SPECIMEN SENT. DR FORTUNE D/C ORDERS. IV D/C INTACT. [facility]. D/C INSTRUCT REVIEWED. PT STATE EN-ROUTE FOR TRANSPORTATION HOME. SHE IS PLEASANT/APPRECIATIVE.
== END 2019-08-30 13:45 | disposition home or self-care (01) | DRG 291 ==
LOC: ER 10:16 → PCU 13:14 → ICUW 15:10 → MEDS 08-27 21:00 → ENPENDDIS 08-30 11:25 → MEDS 08-30 13:45
PROVIDERS: Emergency Medicine; Nurse Practitioner Acute Care; ADMIT Family Medicine
DX: I13.0 Hypertensive heart and chronic kidney disease with heart failure and stage 1 through stage 4 chronic kidney disease, or unspecified chronic kidney disease (principal); I50.33 Acute on chronic diastolic (congestive) heart failure; J96.21 Acute and chronic respiratory failure with hypoxia; N17.9 Acute kidney failure, unspecified; J44.1 Chronic obstructive pulmonary disease with (acute) exacerbation; B02.8 Zoster with other complications; G45.9 Transient cerebral ischemic attack, unspecified; E11.22 Type 2 diabetes mellitus with diabetic chronic kidney disease; N18.9 Chronic kidney disease, unspecified; J11.1 Influenza due to unidentified influenza virus with other respiratory manifestations; F41.1 Generalized anxiety disorder; F17.210 Nicotine dependence, cigarettes, uncomplicated; Z95.1 Presence of aortocoronary bypass graft
CPT/HCPCS: 0099U; 36415; 70450; 71045; 71046; 76770; 80053; 80069; 81003; 82550; 82947; 83690; 83735; 83880; 84100; 84484; 85025; 85610; 87338; 93005; 93010; 93880; 94640; 94760; 94761; 96361; 96374; 97110; 97112; 97116; 97162; 97165; 99285-25; A9270-GY; J1956; J2405; J7030; J7050; J7512; Q0163

== ENCOUNTER 2019-09-13 22:39 | Emergency (ER) | payer MEDICARE, OTHER ==
[~2019-09-13] VITALS: Ht 154.9 cm; Wt 70.8 kg
[~2019-09-13 22:39] MED LIST changes: +ACYC800 PO; +B-121000 MC3 PO; +Duoneb 2.5-0.5 M3 ML INH; +Florastor250 MG PO; +Nicotine Patch1 EAC5 TOP; +SEEBRI NEOHALER INH; +SENN187 PO; +Tamiflu30 MG PO
[2019-09-13 23:01] LABS: BASOPHILS ABSOLUTE AUTO 0.02 K/mm3 (0.00-0.23); BASOPHILS PERCENT AUTO 0 % (0-2); EOSINOPHILS PERCENT AUTO 1 % (0-6); Hematocrit 42.8 % (33.0-51.0); Hemoglobin 13.6 g/dL (11.5-16.0); IMMATURE GRAN PERCENT AUTO 1 % (0-1); LYMPHOCYTES ABSOLUTE AUTO 1.69 K/mm3 (0.84-5.20); LYMPHOCYTES PERCENT AUTO 19 % (21-46); MONOCYTES ABSOLUTE AUTO 0.72 K/mm3 (0.16-1.47); MONOCYTES PERCENT AUTO 8 % (4-13); Mean Corpuscular HGB Conc 31.8 g/dL (31.5-36.5); Mean Corpuscular Volume 95 fL (80-100); Mean Platelet Volume 10.6 fL (9.1-12.4); NEUTROPHILS ABSOLUTE AUTO 6.19 K/mm3 (1.96-9.15); NEUTROPHILS PERCENT AUTO 70 % (41-73); Platelet Count 165 K/mm3 (150-400); RDW Coefficient Variation 16.1 % (11.7-14.2); Red Blood Cell Count 4.53 M/mm3 (3.80-5.20); White Blood Cell Count 8.82 K/mm3 (4.00-11.30)
[2019-09-13 23:16] LABS: International Normalized Ratio 1.01; Prothrombin Time Results 10.8 Sec (9.7-11.5)
[2019-09-13 23:17] LABS: Albumin, Blood 2.8 g/dL (3.4-5.0); Albumin/Globulin Ratio 0.7 (0.8-1.8); Bilirubin, Total 0.4 mg/dL (0.1-1.0); Bun/Creatinine Ratio 17.7 (12.0-20.0); Calcium, Blood 8.2 mg/dL (8.5-10.1); Creatinine, Blood 1.41 mg/dL (0.40-1.00); Globulin, Blood 3.8 g/dL (2.2-4.0); Potassium, Blood 4.3 mmol/L (3.5-5.5); Total Protein, Blood 6.6 g/dL (6.4-8.2)
== END 2019-09-14 01:52 | disposition home or self-care (01) ==
LOC: ER 22:39
PROVIDERS: Emergency Medicine
DX: R41.82 Altered mental status, unspecified (principal); I11.0 Hypertensive heart disease with heart failure; I50.9 Heart failure, unspecified; J44.9 Chronic obstructive pulmonary disease, unspecified; F17.210 Nicotine dependence, cigarettes, uncomplicated; Z79.899 Other long term (current) drug therapy; Z79.52 Long term (current) use of systemic steroids; Z79.84 Long term (current) use of oral hypoglycemic drugs
CPT/HCPCS: 71046; 80053; 82550; 83880; 85025; 85610; 93005; 93010; J2310; J2405

== ENCOUNTER → 2019-09-27 | Outpatient (CLI) | payer MEDICARE, OTHER ==
[2019-09-27 10:22] LABS: Source, Urine Clean Catch
[2019-09-27 13:09] LABS: Bilirubin, Urine Neg (Neg); Blood, Urine 1+ (Neg); Glucose Qualitative, Urine Neg (Neg); Ketones, Urine Neg (Neg); Leukocyte Esterase, Urine Neg (Neg); Nitrite, Urine Neg (Neg); Protein, Urine Neg (Neg); Urobilinogen, Urine NORM (Normal)
[2019-09-27 13:17] LABS: Appearance, Urine Clear (Clear); Bacteria Not Seen /hpf; Color, Urine Yellow (P-Yellow); Red Blood Cells, Urine 0-2 /hpf (0-2); Squamous Epithelial Cells Few /hpf (Few); White Blood Cells, Urine Not Seen /hpf (0-5)
[2019-09-27 14:51] LABS: Protein, Urine Random 9.2 mg/dL (0.0-11.9)
[2019-09-27 15:00] LABS: Creatinine, Urine Random 49.1 mg/dL (27.00-270.00)
== END ==
LOC: LAB 08:30 → LAB SHORT 08:30
PROVIDERS: Internal Medicine
DX: N18.2 Chronic kidney disease, stage 2 (mild) (principal)
CPT/HCPCS: 81001; 82570; 84156

== ENCOUNTER 2020-05-24 16:35 | Emergency (ER) | payer MEDICARE, OTHER ==
[~2020-05-24 16:35] MED LIST changes: +INSULANPEN SC; +Isosorbide Mono30 MG PO; +METO50 PO
== END 2020-05-24 18:14 | disposition left against medical advice (07) ==
LOC: ER 16:35
DX: Z53.21 Procedure and treatment not carried out due to patient leaving prior to being seen by health care provider (principal)

== ENCOUNTER 2020-06-07 14:08 | Emergency (ER) | payer MEDICARE, OTHER ==
[~2020-06-07] VITALS: Ht 157.5 cm; Wt 70.3 kg
[2020-06-07 14:43] LABS: BASOPHILS ABSOLUTE AUTO 0.04 K/mm3 (0.00-0.23); BASOPHILS PERCENT AUTO 1 % (0-2); EOSINOPHILS ABSOLUTE AUTO 0.34 K/mm3 (0.00-0.68); EOSINOPHILS PERCENT AUTO 4 % (0-6); Hemoglobin 14.5 g/dL (11.5-16.0); IMMATURE GRAN ABSOLUTE AUTO 0.03 K/mm3 (0.00-0.10); IMMATURE GRAN PERCENT AUTO 0 % (0-1); LYMPHOCYTES ABSOLUTE AUTO 2.56 K/mm3 (0.84-5.20); LYMPHOCYTES PERCENT AUTO 33 % (21-46); MONOCYTES ABSOLUTE AUTO 0.59 K/mm3 (0.16-1.47); MONOCYTES PERCENT AUTO 8 % (4-13); Mean Corpuscular HGB 29.1 pg (26.0-34.0); Mean Corpuscular HGB Conc 32.2 g/dL (31.5-36.5); Mean Corpuscular Volume 90 fL (80-100); Mean Platelet Volume 10.4 fL (9.1-12.4); NEUTROPHILS ABSOLUTE AUTO 4.32 K/mm3 (1.96-9.15); NEUTROPHILS PERCENT AUTO 55 % (41-73); Platelet Count 223 K/mm3 (150-400); RDW Coefficient Variation 14.9 % (11.7-14.2); RDW Standard Deviation 49.3 fL (35.1-46.3); Red Blood Cell Count 4.99 M/mm3 (3.80-5.20); White Blood Cell Count 7.88 K/mm3 (4.00-11.30)
[2020-06-07 15:14] LABS: Alanine Aminotransfer (ALT/SGP 13 U/L (12-78); Albumin, Blood 3.4 g/dL (3.4-5.0); Albumin/Globulin Ratio 0.8 (0.8-1.8); Alk Phos 98 U/L (50-136); Anion Gap 5 mmol/L (6-16); Aspartate Aminotrans (AST/SGOT 11 U/L (12-37); Bilirubin, Total 0.4 mg/dL (0.1-1.0); Blood Urea Nitrogen 24 mg/dL (8-24); CO2, Blood 28 mmol/L (21-32); Calcium, Blood 8.7 mg/dL (8.5-10.1); Chloride, Blood 107 mmol/L (98-108); Creatinine, Blood 1.41 mg/dL (0.40-1.00); Globulin, Blood 4.4 g/dL (2.2-4.0); Glomerular Filtration Rate 39 (60-); Glucose, Blood 146 mg/dL (70-99); Potassium, Blood 3.8 mmol/L (3.5-5.5); Sodium, Blood 140 mmol/L (136-145); Total Protein, Blood 7.8 g/dL (6.4-8.2); Troponin I <0.015 ng/mL (0.000-0.040)
[2020-06-07 16:17] LABS: Source, Urine Clean Catch
[2020-06-07 16:33] LABS: Appearance, Urine Hazy (Clear); Bilirubin, Urine Neg (Neg); Blood, Urine 1+ (Neg); Color, Urine Yellow (P-Yellow); Glucose Qualitative, Urine Neg (Neg); Ketones, Urine Neg (Neg); Leukocyte Esterase, Urine Neg (Neg); Nitrite, Urine Neg (Neg); Protein, Urine 1+ (Neg); Specific Gravity, Urine 1.015 (1.003-1.022); Urobilinogen, Urine NORM (Normal)
[2020-06-07 17:02] LABS: White Blood Cells, Urine 0-2 /hpf (0-5)
[2020-06-07 17:03] LABS: Bacteria Few /hpf; Red Blood Cells, Urine 0-2 /hpf (0-2); Squamous Epithelial Cells Many /hpf (Few)
[2020-06-07] MEDS ORDERED: CYCL10 PO (17:50)
== END 2020-06-07 18:03 | disposition home or self-care (01) ==
LOC: ER 14:08
PROVIDERS: Emergency Medicine
DX: M54.5 Low back pain (principal); R06.00 Dyspnea, unspecified; R10.84 Generalized abdominal pain; I13.0 Hypertensive heart and chronic kidney disease with heart failure and stage 1 through stage 4 chronic kidney disease, or unspecified chronic kidney disease; E11.22 Type 2 diabetes mellitus with diabetic chronic kidney disease; E11.51 Type 2 diabetes mellitus with diabetic peripheral angiopathy without gangrene; N18.9 Chronic kidney disease, unspecified; I50.9 Heart failure, unspecified; J44.9 Chronic obstructive pulmonary disease, unspecified; E78.5 Hyperlipidemia, unspecified; Z88.8 Allergy status to other drugs, medicaments and biological substances; Z88.6 Allergy status to analgesic agent; Z91.09 Other allergy status, other than to drugs and biological substances; Z88.5 Allergy status to narcotic agent; Z79.899 Other long term (current) drug therapy; Z79.02 Long term (current) use of antithrombotics/antiplatelets; Z79.01 Long term (current) use of anticoagulants; Z79.4 Long term (current) use of insulin; Z86.718 Personal history of other venous thrombosis and embolism
CPT/HCPCS: 36415; 71045; 74176; 80053; 81001; 84484; 85025; 93005; 93010; 99285-25

== ENCOUNTER 2020-10-28 20:05 | Emergency (ER) | payer MEDICARE, OTHER ==
[~2020-10-28] VITALS: Ht 157.5 cm; Wt 71.2 kg
[~2020-10-28 20:05] MED LIST changes: +ATOR40TA PO; +BASAGLAR K100 UNIT/1 SC; +CYCLOBENZAPRINE5 MG PO; -INSULANPEN SC; +ISOSORBIDE MONO30 MG PO; -Isosorbide Dini30 MG PO; +SPIRIVA RESPIMAT4 G3 INH; +TOLT4 PO; +Xylocaine5 M1 EXT
[2020-10-28 20:31] LABS: BASOPHILS ABSOLUTE AUTO 0.04 K/mm3 (0.00-0.23); BASOPHILS PERCENT AUTO 0 % (0-2); EOSINOPHILS ABSOLUTE AUTO 0.35 K/mm3 (0.00-0.68); EOSINOPHILS PERCENT AUTO 3 % (0-6); Hematocrit 44.1 % (33.0-51.0); Hemoglobin 14.7 g/dL (11.5-16.0); IMMATURE GRAN ABSOLUTE AUTO 0.05 K/mm3 (0.00-0.10); IMMATURE GRAN PERCENT AUTO 1 % (0-1); LYMPHOCYTES ABSOLUTE AUTO 2.61 K/mm3 (0.84-5.20); LYMPHOCYTES PERCENT AUTO 24 % (21-46); MONOCYTES ABSOLUTE AUTO 0.71 K/mm3 (0.16-1.47); MONOCYTES PERCENT AUTO 7 % (4-13); Mean Corpuscular HGB 29.2 pg (26.0-34.0); Mean Corpuscular HGB Conc 33.3 g/dL (31.5-36.5); Mean Corpuscular Volume 88 fL (80-100); Mean Platelet Volume 10.8 fL (9.1-12.4); NEUTROPHILS ABSOLUTE AUTO 7.08 K/mm3 (1.96-9.15); NEUTROPHILS PERCENT AUTO 65 % (41-73); Platelet Count 234 K/mm3 (150-400); RDW Coefficient Variation 15.4 % (11.7-14.2); RDW Standard Deviation 49.4 fL (35.1-46.3); Red Blood Cell Count 5.04 M/mm3 (3.80-5.20); White Blood Cell Count 10.84 K/mm3 (4.00-11.30)
[2020-10-28 21:12] LABS: Alanine Aminotransfer (ALT/SGP 14 U/L (12-78); Albumin, Blood 3.4 g/dL (3.4-5.0); Albumin/Globulin Ratio 0.8 (0.8-1.8); Alk Phos 98 U/L (50-136); Anion Gap 3 mmol/L (6-16); Aspartate Aminotrans (AST/SGOT 8 U/L (12-37); Bilirubin, Total 0.3 mg/dL (0.1-1.0); Blood Urea Nitrogen 23 mg/dL (8-24); Bun/Creatinine Ratio 16.5 (12.0-20.0); CO2, Blood 28 mmol/L (21-32); Calcium, Blood 8.5 mg/dL (8.5-10.1); Chloride, Blood 107 mmol/L (98-108); Creatinine, Blood 1.39 mg/dL (0.40-1.00); Glomerular Filtration Rate 40 (60-); Glucose, Blood 115 mg/dL (70-99); Magnesium, Blood 2.1 mg/dL (1.6-2.4); Potassium, Blood 3.5 mmol/L (3.5-5.5); Sodium, Blood 138 mmol/L (136-145); Total Protein, Blood 7.4 g/dL (6.4-8.2); Troponin I <0.015 ng/mL (0.000-0.040)
[2021-02-11] MEDS ORDERED: AMLODIPINE BESYL5 MG PO (22:08)
== END 2020-10-28 23:31 | disposition home or self-care (01) ==
LOC: ER 20:05
PROVIDERS: Emergency Medicine
DX: I13.0 Hypertensive heart and chronic kidney disease with heart failure and stage 1 through stage 4 chronic kidney disease, or unspecified chronic kidney disease (principal); I50.9 Heart failure, unspecified; E11.22 Type 2 diabetes mellitus with diabetic chronic kidney disease; N18.9 Chronic kidney disease, unspecified; J44.9 Chronic obstructive pulmonary disease, unspecified; E78.5 Hyperlipidemia, unspecified; Z79.4 Long term (current) use of insulin; Z79.01 Long term (current) use of anticoagulants; Z79.899 Other long term (current) drug therapy; Z88.6 Allergy status to analgesic agent; Z91.09 Other allergy status, other than to drugs and biological substances; Z88.1 Allergy status to other antibiotic agents; Z88.5 Allergy status to narcotic agent; Z91.040 Latex allergy status; Z86.718 Personal history of other venous thrombosis and embolism
CPT/HCPCS: 36415; 71046; 80053; 83735; 83880; 84484; 85025; 93005; 93010; 96374; 99285-25; J1940

== ENCOUNTER 2020-11-08 09:09 | Day surgery (SDC) | payer MEDICARE, OTHER ==
[~2020-11-08] VITALS: Ht 165.1 cm; Wt 70.0 kg
--- NOTE | 2020-11-08 13:00 | NUR ---
patient returned to [facility], resting comfortably, right groin site soft and nontender, pulses present.
--- NOTE | 2020-11-08 13:14 | NUR ---
SPOKE WITH DAUGHTER VIA PHONE AND UPDATED ON POTENTIAL DISCHARGE TIME AND THAT PATIENT IS IN THE RECOVERY ROOM, ON BEDREST FOR GROIN ACCESS. VVS.
[2020-11-08] MEDS ORDERED: RANO500T ×2 (13:45→13:47)
--- NOTE | 2020-11-08 13:55 | NUR ---
PATIENT RESTING COMFORTABLY, AWAKENS EASILY AND ANSWERES QUESTIONS APPROPRIATELY. RIGHT GROIN SITE STABLE.
--- NOTE | 2020-11-08 15:57 | NUR ---
DAUGHTER LEVI CALLED FOR COLOR ARTIST TIME.
--- NOTE | 2020-11-08 16:00 | NUR ---
PATIENT UP TO BATHROOM. TOLERATED WELL. RIGHT GROIN SITE STABLE
--- NOTE | 2020-11-08 16:09 | NUR ---
LEFT MESSAGE AT DR MOTA'S OFFICE CONCERNING MEDICATION. DR CANCHOLA WANTS DR MOTA TO DISCUSS STARTING RANEXA WITH HER
--- NOTE | 2020-11-08 17:12 | NUR ---
DISCHARGE PT REMAINED A&OX3 AND DENIED ANY PAIN DURING RECOVERY. PT ABLE TO ABULATE TO RESTROOM WITH STEADY GAIT. PT ABLE TO DRESS SELF INDEPENDANTLY. IV DC'D WITH CANULA IN TACT. R GROIN SITE REMAINS CDI-NO HEMATOMA NOTED. DISCHARGE PAPERWORK GONE OVER WITH PT. PT VERBALLY STATED THE UNDERSTANDING OF THE DISCHARGE EDUCATION AND DENIED ANY QUESTIONS AT THIS TIME. PT WHEEELD OUT BY THIS NURSE.
[2021-02-11] MEDS ORDERED: AMLODIPINE BESYL5 MG PO (22:08)
== END 2020-11-08 23:00 | disposition home or self-care (01) ==
LOC: MHTC 09:09
DX: I25.110 Atherosclerotic heart disease of native coronary artery with unstable angina pectoris (principal); I73.9 Peripheral vascular disease, unspecified; I65.29 Occlusion and stenosis of unspecified carotid artery; I11.0 Hypertensive heart disease with heart failure; I50.9 Heart failure, unspecified; E78.5 Hyperlipidemia, unspecified; J44.9 Chronic obstructive pulmonary disease, unspecified; R00.1 Bradycardia, unspecified; F17.200 Nicotine dependence, unspecified, uncomplicated; Z79.01 Long term (current) use of anticoagulants; Z79.02 Long term (current) use of antithrombotics/antiplatelets; Z79.4 Long term (current) use of insulin; Z86.718 Personal history of other venous thrombosis and embolism; Z88.6 Allergy status to analgesic agent; Z88.1 Allergy status to other antibiotic agents; Z88.5 Allergy status to narcotic agent; Z88.8 Allergy status to other drugs, medicaments and biological substances; Z91.048 Other nonmedicinal substance allergy status; Z95.820 Peripheral vascular angioplasty status with implants and grafts; Z95.1 Presence of aortocoronary bypass graft
CPT/HCPCS: 76937; 82947; 85347; 93455; 93571; 99152; 99153; C1760; C1769; C1887; C1894; J1644; J2250; J2720; J3010; J7030; J7050; Q9967

== ENCOUNTER 2021-03-18 13:36 | Observation (INO) | payer MEDICARE, OTHER ==
[~2021-03-18] VITALS: Ht 157.5 cm; Wt 66.4 kg
[~2021-03-18 13:36] MED LIST changes: +AMLODIPINE BESYL5 MG PO; -SPIR25 PO
[2021-03-18] MEDS ORDERED: HYDRA25 PO (14:03)
[2021-03-18 14:38] LABS: BASOPHILS ABSOLUTE AUTO 0.02 K/mm3 (0.00-0.23); BASOPHILS PERCENT AUTO 0 % (0-2); EOSINOPHILS PERCENT AUTO 3 % (0-6); Hematocrit 37.1 % (33.0-51.0); IMMATURE GRAN ABSOLUTE AUTO 0.03 K/mm3 (0.00-0.10); IMMATURE GRAN PERCENT AUTO 1 % (0-1); LYMPHOCYTES ABSOLUTE AUTO 1.11 K/mm3 (0.84-5.20); LYMPHOCYTES PERCENT AUTO 17 % (21-46); MONOCYTES ABSOLUTE AUTO 0.45 K/mm3 (0.16-1.47); MONOCYTES PERCENT AUTO 7 % (4-13); Mean Corpuscular HGB 29.5 pg (26.0-34.0); Mean Corpuscular HGB Conc 32.3 g/dL (31.5-36.5); Mean Corpuscular Volume 91 fL (80-100); Mean Platelet Volume 10.7 fL (9.1-12.4); NEUTROPHILS ABSOLUTE AUTO 4.67 K/mm3 (1.96-9.15); NEUTROPHILS PERCENT AUTO 72 % (41-73); Platelet Count 159 K/mm3 (150-400); RDW Coefficient Variation 15.3 % (11.7-14.2); RDW Standard Deviation 51.8 fL (35.1-46.3); Red Blood Cell Count 4.07 M/mm3 (3.80-5.20); White Blood Cell Count 6.48 K/mm3 (4.00-11.30)
[2021-03-18 14:51] LABS: Alanine Aminotransfer (ALT/SGP 17 U/L (12-78); Albumin, Blood 3.1 g/dL (3.4-5.0); Albumin/Globulin Ratio 0.8 (0.8-1.8); Alk Phos 79 U/L (50-136); Anion Gap 8 mmol/L (6-16); Aspartate Aminotrans (AST/SGOT 13 U/L (12-37); Bilirubin, Total 0.5 mg/dL (0.1-1.0); Blood Urea Nitrogen 46 mg/dL (8-24); Bun/Creatinine Ratio 17.4 (12.0-20.0); CO2, Blood 25 mmol/L (21-32); Chloride, Blood 106 mmol/L (98-108); Creatinine, Blood 2.65 mg/dL (0.40-1.00); Globulin, Blood 4.1 g/dL (2.2-4.0); Glomerular Filtration Rate 18 (60-); Glucose, Blood 140 mg/dL (70-99); Potassium, Blood 4.2 mmol/L (3.5-5.5); Sodium, Blood 139 mmol/L (136-145); Total Protein, Blood 7.2 g/dL (6.4-8.2); Troponin I <0.015 ng/mL (0.000-0.040)
[2021-03-18 15:57] LABS: Prothrombin Time Results 10.8 Sec (9.7-11.5)
[2021-03-18 17:18] LABS: Source, Urine Voided
[2021-03-18] MEDS ORDERED: SPIR25 PO (17:23)
[2021-03-18] MEDS ORDERED: INSULANPEN SC (17:24)
[2021-03-18] MEDS ORDERED: SPIRIVA RESPIMAT4 G3 INH (17:24)
[2021-03-18 18:03] LABS: Appearance, Urine Clear (Clear); Bilirubin, Urine Neg (Neg); Blood, Urine 1+ (Neg); Color, Urine Yellow (P-Yellow); Glucose Qualitative, Urine Neg (Neg); Ketones, Urine Neg (Neg); Leukocyte Esterase, Urine Neg (Neg); Nitrite, Urine Neg (Neg); Protein, Urine 2+ (Neg); Urobilinogen, Urine NORM (Normal)
[2021-03-18 18:12] LABS: SARS-Cov-2 (COVID-19) PCR, MMC POSITIVE (NEGATIVE)
[2021-03-18 18:24] LABS: Bacteria Mod /hpf; Squamous Epithelial Cells Few /hpf (Few)
--- NOTE | 2021-03-18 23:56 | NUR ---
ADMISSION NOTE ADMITTED 70 YR OLD FEMALE TO FLOOR FROM THE ED WITH DX OF CHEST PAIN AND SOB DUE TO COVID. ALERT AND ORIENTED AND UP AD SVEN, CONTINENT OF BOWEL AND BLADDER. O2 AT 3L/MIN PER NC. ORIENTED TO USE OF CALL LIGHT. CALL LIGHT IN REACH. ISOLATION PRECAUTIONS INITIATED PER MD ORDERS
--- NOTE | 2021-03-19 06:09 | NUR ---
ANIMAL NURSERY WORKER SUMMARY HAS BEEN RESTING QUIETLY WITH FEW INTERRUPTIONS THIS SHIFT. ON MED TELE, NOTED HR DROP TO THE 50'S, CHECK AT BEDSIDE REVEALED NO NOTED DISTRESS. DENIED CHEST PAIN THROUGHOUT SHIFT. O2 PER NC, BUT PT CONTINUES TO TAKE IT OFF STATING THAT ITS UNCOMFORTABLE AND ITCHES. LUNG SOUNDS DIMINISNED. ISOLATION PRECAUTIONS MAINTINED. CALL LIGHT IN REACH
[2021-03-19] MEDS ORDERED: DEXA6 PO (14:23)
[2021-03-19] MEDS ORDERED: ONDA4ODT MM (14:23)
--- NOTE | 2021-03-19 15:30 | NUR ---
DISCHARGE INSTRUCTIONS COMPLETED AND DISCUSSED WITH PT EXPRESSING UNDERSTANDING. HAS HAD NAUSEA AND VOMITTING THIS AFTERNOON. MECLIZINE GIVEN. STATES SHE FEELS LIKE HER BLOOD PRESSURE IS LOWER THAN SHE GENERALLY TOLERATES. WAS IN 120S SYSTOLIC THIS MORNING BUT STILL WANTED TO TAKE HER [place] AND CARVEDILOL. INDEPENDENT TO BATHROOM WITH DRIBBLES. TO CURB VIA W/C. FORGOT HER OXYGEN ONCE SHE GOT TO CAR. SPOKE WITH JACKELINE WITH APPROVAL FOR PT TO TAKE TANK HOME BUT TO RETURN IT SOON SHE WAS FEELING BETTER AND OUT OF ISOLATION.
== END 2021-03-19 15:30 | disposition home or self-care (01) ==
LOC: ER 13:36 → ERHOLD 13:37 → MEDS 21:16
PROVIDERS: Emergency Medicine; ADMIT Internal Medicine
DX: R07.89 Other chest pain (principal); U07.1 COVID-19; J96.21 Acute and chronic respiratory failure with hypoxia; I13.0 Hypertensive heart and chronic kidney disease with heart failure and stage 1 through stage 4 chronic kidney disease, or unspecified chronic kidney disease; E11.22 Type 2 diabetes mellitus with diabetic chronic kidney disease; I50.32 Chronic diastolic (congestive) heart failure; N18.4 Chronic kidney disease, stage 4 (severe); I25.10 Atherosclerotic heart disease of native coronary artery without angina pectoris; I25.2 Old myocardial infarction; J44.9 Chronic obstructive pulmonary disease, unspecified; M19.90 Unspecified osteoarthritis, unspecified site; E78.5 Hyperlipidemia, unspecified; E11.51 Type 2 diabetes mellitus with diabetic peripheral angiopathy without gangrene; F17.200 Nicotine dependence, unspecified, uncomplicated; F41.1 Generalized anxiety disorder; I27.20 Pulmonary hypertension, unspecified; Z88.5 Allergy status to narcotic agent; Z88.8 Allergy status to other drugs, medicaments and biological substances; Z91.048 Other nonmedicinal substance allergy status; Z88.1 Allergy status to other antibiotic agents; Z88.6 Allergy status to analgesic agent; Z91.040 Latex allergy status; Z79.02 Long term (current) use of antithrombotics/antiplatelets; Z79.01 Long term (current) use of anticoagulants; Z95.1 Presence of aortocoronary bypass graft; Z95.5 Presence of coronary angioplasty implant and graft; Z79.4 Long term (current) use of insulin; Z99.81 Dependence on supplemental oxygen; Z86.718 Personal history of other venous thrombosis and embolism
CPT/HCPCS: 36415; 70450; 71045; 80053; 81001; 82947; 83690; 83880; 84484; 85025; 85610; 93005; 93010; 94667; 94760; 96374; 96375; 96376; 99285-25; A9270; G0378; J1940; J2405; U0004

== ENCOUNTER 2021-03-21 17:02 | Emergency (ER) | payer MEDICARE, OTHER ==
[~2021-03-21] VITALS: Ht 157.5 cm; Wt 66.2 kg
[~2021-03-21 17:02] MED LIST changes: +DEXA6 PO; +HYDRA25 PO; +INSULANPEN SC; +ONDA4ODT MM; +SPIR25 PO
[2021-03-21] MEDS ORDERED: PRED20 PO (18:28)
== END 2021-03-21 18:42 | disposition home or self-care (01) ==
LOC: ER 17:02
DX: U07.1 COVID-19 (principal); I13.0 Hypertensive heart and chronic kidney disease with heart failure and stage 1 through stage 4 chronic kidney disease, or unspecified chronic kidney disease; N18.4 Chronic kidney disease, stage 4 (severe); I50.9 Heart failure, unspecified; E11.22 Type 2 diabetes mellitus with diabetic chronic kidney disease; I25.10 Atherosclerotic heart disease of native coronary artery without angina pectoris; E11.51 Type 2 diabetes mellitus with diabetic peripheral angiopathy without gangrene; F17.210 Nicotine dependence, cigarettes, uncomplicated; Z88.6 Allergy status to analgesic agent; Z88.5 Allergy status to narcotic agent; Z88.8 Allergy status to other drugs, medicaments and biological substances; Z91.040 Latex allergy status; Z91.048 Other nonmedicinal substance allergy status; Z79.899 Other long term (current) drug therapy; Z79.01 Long term (current) use of anticoagulants; Z79.02 Long term (current) use of antithrombotics/antiplatelets; Z79.4 Long term (current) use of insulin; Z86.718 Personal history of other venous thrombosis and embolism
CPT/HCPCS: 36415; 93005; 93010; 99285-25

== ENCOUNTER 2021-04-25 16:12 | Emergency (ER) | payer MEDICARE, OTHER ==
[~2021-04-25] VITALS: Ht 157.5 cm; Wt 64.0 kg
[~2021-04-25 16:12] MED LIST changes: -OXYC10TA19 PO; +OXYC5 PO
[2021-04-25 17:14] LABS: BASOPHILS ABSOLUTE AUTO 0.04 K/mm3 (0.00-0.23); BASOPHILS PERCENT AUTO 1 % (0-2); EOSINOPHILS ABSOLUTE AUTO 0.13 K/mm3 (0.00-0.68); EOSINOPHILS PERCENT AUTO 2 % (0-6); Hematocrit 39.8 % (33.0-51.0); Hemoglobin 12.5 g/dL (11.5-16.0); IMMATURE GRAN ABSOLUTE AUTO 0.04 K/mm3 (0.00-0.10); IMMATURE GRAN PERCENT AUTO 1 % (0-1); LYMPHOCYTES ABSOLUTE AUTO 1.64 K/mm3 (0.84-5.20); LYMPHOCYTES PERCENT AUTO 23 % (21-46); MONOCYTES PERCENT AUTO 8 % (4-13); Mean Corpuscular HGB 27.9 pg (26.0-34.0); Mean Corpuscular HGB Conc 31.4 g/dL (31.5-36.5); Mean Corpuscular Volume 89 fL (80-100); Mean Platelet Volume 10.7 fL (9.1-12.4); NEUTROPHILS ABSOLUTE AUTO 4.74 K/mm3 (1.96-9.15); NEUTROPHILS PERCENT AUTO 66 % (41-73); Platelet Count 283 K/mm3 (150-400); RDW Coefficient Variation 15.1 % (11.7-14.2); RDW Standard Deviation 48.7 fL (35.1-46.3); Red Blood Cell Count 4.48 M/mm3 (3.80-5.20); White Blood Cell Count 7.19 K/mm3 (4.00-11.30)
[2021-04-25 17:18] LABS: Source, Urine Clean Catch
[2021-04-25 17:25] LABS: Bilirubin, Urine Neg (Neg); Blood, Urine 1+ (Neg); Glucose Qualitative, Urine Neg (Neg); Ketones, Urine Neg (Neg); Leukocyte Esterase, Urine Neg (Neg); Nitrite, Urine Neg (Neg); Protein, Urine 3+ (Neg); Urobilinogen, Urine NORM (Normal)
[2021-04-25 17:34] LABS: Albumin, Blood 2.9 g/dL (3.4-5.0); Albumin/Globulin Ratio 0.6 (0.8-1.8); Bilirubin, Total 0.5 mg/dL (0.1-1.0); Bun/Creatinine Ratio 13.2 (12.0-20.0); Calcium, Blood 8.9 mg/dL (8.5-10.1); Creatinine, Blood 2.27 mg/dL (0.40-1.00); Globulin, Blood 4.8 g/dL (2.2-4.0); Potassium, Blood 4.2 mmol/L (3.5-5.5); Total Protein, Blood 7.7 g/dL (6.4-8.2)
[2021-04-25 18:23] LABS: Appearance, Urine Clear (Clear); Color, Urine Yellow (P-Yellow)
[2021-04-25 18:24] LABS: Bacteria Few /hpf; Red Blood Cells, Urine 0-2 /hpf (0-2); Squamous Epithelial Cells Mod /hpf (Few)
[2021-04-25] MEDS ORDERED: ALMACONE SUSPE355 ML PO (19:07)
[2021-04-25] MEDS ORDERED: DICY20 PO (19:07)
[2021-04-25] MEDS ORDERED: MIRALAX PO (19:07)
[2021-04-25] MEDS ORDERED: ONDA4ODT MM (19:07)
[2021-04-25] MEDS ORDERED: ACET500 PO (19:07)
== END 2021-04-25 19:20 | disposition home or self-care (01) ==
LOC: ER 16:12
PROVIDERS: Physician Assistant
DX: K59.00 Constipation, unspecified (principal); I13.0 Hypertensive heart and chronic kidney disease with heart failure and stage 1 through stage 4 chronic kidney disease, or unspecified chronic kidney disease; E11.22 Type 2 diabetes mellitus with diabetic chronic kidney disease; N18.4 Chronic kidney disease, stage 4 (severe); I50.9 Heart failure, unspecified; J44.9 Chronic obstructive pulmonary disease, unspecified; I25.10 Atherosclerotic heart disease of native coronary artery without angina pectoris; E78.5 Hyperlipidemia, unspecified; E11.51 Type 2 diabetes mellitus with diabetic peripheral angiopathy without gangrene; I73.9 Peripheral vascular disease, unspecified; F17.210 Nicotine dependence, cigarettes, uncomplicated; Z79.899 Other long term (current) drug therapy; Z79.4 Long term (current) use of insulin; Z79.01 Long term (current) use of anticoagulants; Z88.6 Allergy status to analgesic agent; Z91.048 Other nonmedicinal substance allergy status; Z88.1 Allergy status to other antibiotic agents; Z88.5 Allergy status to narcotic agent; Z91.040 Latex allergy status; Z88.8 Allergy status to other drugs, medicaments and biological substances; Z86.718 Personal history of other venous thrombosis and embolism
CPT/HCPCS: 36415; 74176; 80053; 81001; 83690; 85025; 96374; 96375; 99284-25; A9270; J0360; J2405

== ENCOUNTER 2021-04-27 13:29 | Observation (INO) | payer MEDICARE, OTHER ==
[~2021-04-27] VITALS: Ht 157.5 cm; Wt 64.0 kg
[~2021-04-27 13:29] MED LIST changes: +ACET500 PO; +ALMACONE SUSPE355 ML PO; +DICY20 PO; +MIRALAX PO
[2021-04-27 15:07] LABS: BASOPHILS ABSOLUTE AUTO 0.03 K/mm3 (0.00-0.23); BASOPHILS PERCENT AUTO 1 % (0-2); EOSINOPHILS ABSOLUTE AUTO 0.01 K/mm3 (0.00-0.68); EOSINOPHILS PERCENT AUTO 0 % (0-6); Hematocrit 36.3 % (33.0-51.0); Hemoglobin 11.4 g/dL (11.5-16.0); IMMATURE GRAN ABSOLUTE AUTO 0.03 K/mm3 (0.00-0.10); IMMATURE GRAN PERCENT AUTO 1 % (0-1); LYMPHOCYTES ABSOLUTE AUTO 1.28 K/mm3 (0.84-5.20); LYMPHOCYTES PERCENT AUTO 20 % (21-46); MONOCYTES ABSOLUTE AUTO 0.45 K/mm3 (0.16-1.47); MONOCYTES PERCENT AUTO 7 % (4-13); Mean Corpuscular HGB 28.1 pg (26.0-34.0); Mean Corpuscular HGB Conc 31.4 g/dL (31.5-36.5); Mean Corpuscular Volume 89 fL (80-100); Mean Platelet Volume 10.8 fL (9.1-12.4); NEUTROPHILS ABSOLUTE AUTO 4.49 K/mm3 (1.96-9.15); NEUTROPHILS PERCENT AUTO 71 % (41-73); Platelet Count 274 K/mm3 (150-400); RDW Coefficient Variation 15.1 % (11.7-14.2); RDW Standard Deviation 49.8 fL (35.1-46.3); Red Blood Cell Count 4.06 M/mm3 (3.80-5.20); White Blood Cell Count 6.29 K/mm3 (4.00-11.30)
[2021-04-27 15:21] LABS: Alanine Aminotransfer (ALT/SGP 17 U/L (12-78); Albumin, Blood 2.9 g/dL (3.4-5.0); Albumin/Globulin Ratio 0.6 (0.8-1.8); Alk Phos 90 U/L (50-136); Anion Gap 3 mmol/L (6-16); Aspartate Aminotrans (AST/SGOT 11 U/L (12-37); Bilirubin, Total 0.3 mg/dL (0.1-1.0); Blood Urea Nitrogen 42 mg/dL (8-24); Bun/Creatinine Ratio 14.7 (12.0-20.0); CO2, Blood 32 mmol/L (21-32); Calcium, Blood 8.8 mg/dL (8.5-10.1); Chloride, Blood 102 mmol/L (98-108); Creatinine, Blood 2.86 mg/dL (0.40-1.00); Ethanol (Alcohol), Blood, Med <3 mg/dL; Globulin, Blood 4.6 g/dL (2.2-4.0); Glomerular Filtration Rate 16 (60-); Glucose, Blood 121 mg/dL (70-99); Potassium, Blood 4.2 mmol/L (3.5-5.5); Sodium, Blood 137 mmol/L (136-145); Total Protein, Blood 7.5 g/dL (6.4-8.2)
[2021-04-27 18:47] LABS: U Amphetamine Screen Not Detected; U Barbituate Screen Not Detected; U Benzodiazapine Screen Not Detected; U Buprenorphine Screen Not Detected; U Cannabinoids Screen Not Detected; U Cocaine Screen Not Detected; U Methadone Screen Not Detected; U Methamphetamine Screen Not Detected; U Opiates Screen Not Detected; U Oxycodone Screen Not Detected; U Phencyclidine Screen Not Detected; U Propoxyphene Screen Not Detected
[2021-04-27 21:48] LABS: Troponin I 0.044 ng/mL (0.000-0.040)
--- NOTE | 2021-04-28 04:41 | NUR ---
SHIFT SUMMARY- PT. NEW ADMIT FROM ED W/SYNCOPAL EPISODE AND FALL. A&OX4, PLEASANT AND COOPERATIVE WITH CARE. ORIENTED TO NURSING STAFF AND ROOM. PT. C/O SOME WEAKNESS AND UNSTEADY GAIT AT TIMES. 1PA TO BSC, INSTRUCTED TO CALL FOR TOILETING AND/OR AMBULATION ASSIST. VERBALZIED UNDERSTANDING. MEDICATED FOR NECK AND STERNUM PAIN WITH GOOD EFFECT. SLEPT T/O THE NIGHT, NO APPARENT DISTRESS NOTED. VSS, NO OTHER COMPLAINTS T/O THE SHIFT, SAFETY MEASURES IN PLACE. CALL LIGHT WITHIN REACH, SIDE RAILS UPX3, AND BED ALARM ON FOR SAFETY. WILL CONT TO MONITOR.
[2021-04-28 04:50] LABS: Bun/Creatinine Ratio 15.3 (12.0-20.0); Calcium, Blood 8.1 mg/dL (8.5-10.1); Creatinine, Blood 2.68 mg/dL (0.40-1.00); Troponin I 0.038 ng/mL (0.000-0.040)
--- NOTE | 2021-04-28 15:40 | NUR ---
MARIANA Mccauley/'Kvng'Garrick AT THIS TIME PER MD ORDERS
--- NOTE | 2021-04-28 16:11 | NUR ---
echocardiogram complete
--- NOTE | 2021-04-28 17:56 | NUR ---
PATIENT REMAINED STABLE WITH NO CHANGES IN CONDITION THIS SHIFT A&OX4 UP AD SVEN AMBULATING WITH STEADY GAIN BACK AND GENERALIZED PAIN MEDICATED X1 THIS SHIFT PER PRN ORDERS WITH EFFECTIVENESS REMAINS ON RA RESP EASY EVEN UNLABORED NO CHEST PAIN NO S/S DISTRESS NEURO STATUS INTACT ORSTATIC BP'S INITIATED PER ORDER WITH NO COMPLICATIONS WILL CONT TO MONITOR
--- NOTE | 2021-04-29 03:09 | NUR ---
SHIFT SUMMARY PATIENTIS A&O X4,INDEPENDENT WITH STEADY GAIT. PATIENT IS ABLE TO MAKE NEEDS KNOWN.PATIENT'S BP WAS ELEVATED.MEDICATION ADMINISTERED PER EMAR.PT TOLERATED WELL. LUNGS CLEAR BLE, NO LABORED BREATHING NOTED. PATIENT HAS NO C/O PAIN OR DISCOMFORT AT THIS TIME. BED AT LOWEST POSITION, CALL LIGHT WITHIN PATIENT'S REACH.
--- NOTE | 2021-04-29 04:49 | NUR ---
HYPERTENSIVE PT HYPERTENSIVE THIS AM. PO HYDRALYZINE GIVEN WITHOUT AFFECT. DR. RIDER NOTIFIED OF HIM PT BP AND HER HX. NOTIFIED HIM THAT HER HOME BP MEDICATION DOSES WERE DECREASED D/T SYNCOPE. IV LABATELOL INITIALLY ORDERED HOWEVER PT IS BRADYCARDIC ON TELE IN THE 50'S, SO UNABLE TO ADMINISTER. DR. RIDER NOTIFIED AND RECEIVED AN ORDER FOR IV HYDRALYZINE 20 MG IV X1 INSTE[address] RIDER AWARE THAT PT ALREADY RECEIVED A PO DOSE OF HYDRALYZINE, BUT HE STILL WANTS HER TO HAVE AN IV DOSE OF HYDRALYZINE.
[2021-04-29 05:17] LABS: BASOPHILS ABSOLUTE AUTO 0.04 K/mm3 (0.00-0.23); BASOPHILS PERCENT AUTO 1 % (0-2); EOSINOPHILS ABSOLUTE AUTO 0.27 K/mm3 (0.00-0.68); EOSINOPHILS PERCENT AUTO 4 % (0-6); Hematocrit 33.2 % (33.0-51.0); Hemoglobin 10.3 g/dL (11.5-16.0); IMMATURE GRAN ABSOLUTE AUTO 0.04 K/mm3 (0.00-0.10); IMMATURE GRAN PERCENT AUTO 1 % (0-1); LYMPHOCYTES ABSOLUTE AUTO 1.59 K/mm3 (0.84-5.20); LYMPHOCYTES PERCENT AUTO 26 % (21-46); MONOCYTES ABSOLUTE AUTO 0.57 K/mm3 (0.16-1.47); MONOCYTES PERCENT AUTO 9 % (4-13); Mean Corpuscular HGB 27.9 pg (26.0-34.0); Mean Corpuscular Volume 90 fL (80-100); Mean Platelet Volume 10.2 fL (9.1-12.4); NEUTROPHILS ABSOLUTE AUTO 3.64 K/mm3 (1.96-9.15); NEUTROPHILS PERCENT AUTO 59 % (41-73); Platelet Count 216 K/mm3 (150-400); RDW Coefficient Variation 15.4 % (11.7-14.2); Red Blood Cell Count 3.69 M/mm3 (3.80-5.20); White Blood Cell Count 6.15 K/mm3 (4.00-11.30)
[2021-04-29 05:46] LABS: Albumin, Blood 2.6 g/dL (3.4-5.0); Albumin/Globulin Ratio 0.6 (0.8-1.8); Bilirubin, Total 0.3 mg/dL (0.1-1.0); Bun/Creatinine Ratio 15.8 (12.0-20.0); Calcium, Blood 8.4 mg/dL (8.5-10.1); Creatinine, Blood 2.6 mg/dL (0.40-1.00); Globulin, Blood 4.3 g/dL (2.2-4.0); Magnesium, Blood 2.6 mg/dL (1.6-2.4); Potassium, Blood 4.4 mmol/L (3.5-5.5); Thyroid Stimulating Hormone 3.09 uIU/mL (0.360-4.800); Total Protein, Blood 6.9 g/dL (6.4-8.2); Troponin I 0.037 ng/mL (0.000-0.040)
--- NOTE | 2021-04-29 05:46 | NUR ---
HYPERTENSION BP HAS TRENDED DOWN SINCE PT HAS RECEIVED THE PO HYDRALYZINE, HOLDING THE IV HYDRALYZINE FOR NOW. BP NOW 173/89 DOWN FROM 202/. DISCUSSED WITH PHARMACIST JAMESON BURGESS WHO STATES TO HOLD HYDRALYZINE IF BP TRENDS DOWN.
--- NOTE | 2021-04-29 09:56 | NUR ---
PATIENT TRANSPORTED OFF OF UNIT AT THIS TIME VIA WHEELCHAIR FOR MRI OF HEAD ORDERED A&OX4 NO S/S DISTRESS NOTED PRIOR TO OR AT TIME OF TRANSFER FROM UNIT
--- NOTE | 2021-04-29 10:54 | NUR ---
PATIENT REFUSED COZAAR 75 MG PO DESPITE EDUCATION PATIENT COTINUED TO REFUSED STATED THAT SHE HAS TAKEN ENOUGH MEDICATION SINCE LAST NIGHT FEARFUL OF TAKING TOO MANY MEDICATIONS D/T A LOVED ONE DYING FROM TAKING TOO MANY MEDICATIOS PER PATIENT A&OX4 NO S/S DISTRESS NOTED DENIES PAIN AT THIS TIME WILL CONT TO MONITOR
--- NOTE | 2021-04-29 14:57 | NUR ---
PATIENT REMAINS WITH ELEVATED BP ASYMPTOMATIC PER PATIENT BP 212/93 MD MADE AWARE NO GIVEN FOR APRESOLINE 10MG IV STAT METOPROLOL 5MG IV STAT ORDERS CARRIED OUT WILL RECHECK BP PATIENT MAY BE DISCHARGED TO HOME ONCE SBP <180 PER MD MRI OF HEAD CT SCAN XRAYS ALL NEGATIVE PATIENT POST FALL PATIENT MADE AWARE ON DOCTORS ORDERS VERBALIZES UNDERSTANDING WILL CONT TO MONITOR
[2021-04-29] MEDS ORDERED: Carvedilol12.5 MG PO (15:53)
--- NOTE | 2021-04-29 16:53 | NUR ---
PATIENT A&OX4 BP DECREASED TO 194/86 HOWEVER SBP REMAINS >180 WILL CONT BP MEDS ORDERED THIS PM REMAINS ASYMPTOMATIC WILL CONT TO MONITOR DENIES PAIN AT THIS TIME NO S/S DISTRESS NOTED
[2021-04-30 05:56] LABS: BASOPHILS ABSOLUTE AUTO 0.03 K/mm3 (0.00-0.23); BASOPHILS PERCENT AUTO 1 % (0-2); EOSINOPHILS ABSOLUTE AUTO 0.22 K/mm3 (0.00-0.68); EOSINOPHILS PERCENT AUTO 3 % (0-6); Hematocrit 35.1 % (33.0-51.0); IMMATURE GRAN ABSOLUTE AUTO 0.03 K/mm3 (0.00-0.10); IMMATURE GRAN PERCENT AUTO 1 % (0-1); LYMPHOCYTES ABSOLUTE AUTO 1.56 K/mm3 (0.84-5.20); LYMPHOCYTES PERCENT AUTO 24 % (21-46); MONOCYTES ABSOLUTE AUTO 0.48 K/mm3 (0.16-1.47); MONOCYTES PERCENT AUTO 7 % (4-13); Mean Corpuscular HGB 28.1 pg (26.0-34.0); Mean Corpuscular HGB Conc 31.3 g/dL (31.5-36.5); Mean Corpuscular Volume 90 fL (80-100); Mean Platelet Volume 10.5 fL (9.1-12.4); NEUTROPHILS ABSOLUTE AUTO 4.15 K/mm3 (1.96-9.15); NEUTROPHILS PERCENT AUTO 64 % (41-73); Platelet Count 245 K/mm3 (150-400); RDW Coefficient Variation 15.4 % (11.7-14.2); RDW Standard Deviation 50.2 fL (35.1-46.3); Red Blood Cell Count 3.92 M/mm3 (3.80-5.20); White Blood Cell Count 6.47 K/mm3 (4.00-11.30)
[2021-04-30 06:06] LABS: Albumin, Blood 2.9 g/dL (3.4-5.0); Anion Gap 6 mmol/L (6-16); Blood Urea Nitrogen 45 mg/dL (8-24); Bun/Creatinine Ratio 15.7 (12.0-20.0); CO2, Blood 29 mmol/L (21-32); Calcium, Blood 8.8 mg/dL (8.5-10.1); Chloride, Blood 102 mmol/L (98-108); Creatinine, Blood 2.87 mg/dL (0.40-1.00); Glomerular Filtration Rate 16 (60-); Glucose, Blood 90 mg/dL (70-99); Magnesium, Blood 2.7 mg/dL (1.6-2.4); Potassium, Blood 4.5 mmol/L (3.5-5.5); Sodium, Blood 137 mmol/L (136-145)
--- NOTE | 2021-04-30 08:00 | NUR ---
PT IS A&OX4. STAND BY ASSIST. PT'S BP IS ELEVATED AT 188/81. HYDRALAZINE 25MG ADMINISTERED PER EMAR. PT IS SLEEPING IN BED, BED IN LOWEST POSITION AND CALL ALARM WITHIN PATIENT'S REACH.
--- NOTE | 2021-04-30 12:31 | NUR ---
DISCHARGE: PACKET PRINTED AND PT EDUCATED. IV DC'D WNL. EDUCATION GIVEN ON NEW MEDS. PT LEFT UNIT VIA WHEELCHAIR WITH GRETA ALFORD RN.
== END 2021-04-30 12:13 | disposition home or self-care (01) ==
LOC: ER 13:29 → MEDS 13:30 → ENPENDDIS 04-29 10:50 → MEDS 04-30 12:13
PROVIDERS: Emergency Medicine; Family Medicine; ADMIT Internal Medicine
DX: R55 Syncope and collapse (principal); I25.10 Atherosclerotic heart disease of native coronary artery without angina pectoris; J44.9 Chronic obstructive pulmonary disease, unspecified; I13.0 Hypertensive heart and chronic kidney disease with heart failure and stage 1 through stage 4 chronic kidney disease, or unspecified chronic kidney disease; E11.22 Type 2 diabetes mellitus with diabetic chronic kidney disease; N18.4 Chronic kidney disease, stage 4 (severe); I50.32 Chronic diastolic (congestive) heart failure; E78.5 Hyperlipidemia, unspecified; E11.51 Type 2 diabetes mellitus with diabetic peripheral angiopathy without gangrene; F17.210 Nicotine dependence, cigarettes, uncomplicated; R00.1 Bradycardia, unspecified; R79.89 Other specified abnormal findings of blood chemistry; D35.00 Benign neoplasm of unspecified adrenal gland; R79.1 Abnormal coagulation profile; I25.2 Old myocardial infarction; K80.80 Other cholelithiasis without obstruction; M47.812 Spondylosis without myelopathy or radiculopathy, cervical region; R20.0 Anesthesia of skin; I73.00 Raynaud's syndrome without gangrene; I71.4 Abdominal aortic aneurysm, without rupture; I34.0 Nonrheumatic mitral (valve) insufficiency; Z86.16 Personal history of COVID-19; Z79.4 Long term (current) use of insulin; Z95.1 Presence of aortocoronary bypass graft; Z88.5 Allergy status to narcotic agent; Z88.8 Allergy status to other drugs, medicaments and biological substances; Z88.1 Allergy status to other antibiotic agents; Z91.040 Latex allergy status; Z99.81 Dependence on supplemental oxygen
CPT/HCPCS: 36415; 70450; 70551; 71260; 72125; 73080; 73502; 80048; 80053; 80069; 82947; 83690; 83735; 84443; 84484; 85025; 85379; 93005; 93010; 93306; 94640; 94760; 96374; 99285-25; A9270; G0480; J0360; J1815; J7030; Q9967

== ENCOUNTER → 2021-07-18 | Outpatient (CLI) | payer MEDICARE, OTHER ==
[~2021-07-18] MED LIST changes: +Carvedilol12.5 MG PO
[2021-07-18 15:55] LABS: Protein, Urine Quantitative 39.1 mg/dL (0.0-11.9)
[2021-07-22 16:11] LABS: METANEPHRINE, UR 61 ug/L (Undefined)
== END | disposition home or self-care (01) ==
LOC: LAB 07:00 → LAB SHORT 07:00
PROVIDERS: Internal Medicine
DX: I12.9 Hypertensive chronic kidney disease with stage 1 through stage 4 chronic kidney disease, or unspecified chronic kidney disease (principal); N18.4 Chronic kidney disease, stage 4 (severe)
CPT/HCPCS: 81050; 84156

== ENCOUNTER → 2021-09-13 | Outpatient (CLI) | payer MEDICARE, OTHER ==
[~2021-09-13] MED LIST changes: +AMLO5 PO
[2021-09-13 15:23] LABS: Bun/Creatinine Ratio 17.3 (12.0-20.0); Calcium, Blood 8.7 mg/dL (8.5-10.1); Creatinine, Blood 2.54 mg/dL (0.40-1.00)
== END ==
LOC: LAB 15:02 → LAB SHORT 15:02
PROVIDERS: Physician Assistant
DX: N18.6 End stage renal disease (principal); I50.9 Heart failure, unspecified; R10.13 Epigastric pain
CPT/HCPCS: 80048; 83690; 83880

== ENCOUNTER 2021-12-30 14:16 | Emergency (ER) | payer MEDICARE, OTHER ==
[~2021-12-30] VITALS: Ht 157.5 cm; Wt 61.2 kg
[2021-12-30 15:33] LABS: BASOPHILS ABSOLUTE AUTO 0.03 K/mm3 (0.00-0.23); BASOPHILS PERCENT AUTO 0 % (0-2); EOSINOPHILS PERCENT AUTO 3 % (0-6); Hematocrit 40.6 % (33.0-51.0); Hemoglobin 12.8 g/dL (11.5-16.0); IMMATURE GRAN ABSOLUTE AUTO 0.03 K/mm3 (0.00-0.10); IMMATURE GRAN PERCENT AUTO 0 % (0-1); LYMPHOCYTES PERCENT AUTO 25 % (21-46); MONOCYTES PERCENT AUTO 9 % (4-13); Mean Corpuscular HGB 27.3 pg (26.0-34.0); Mean Corpuscular HGB Conc 31.5 g/dL (31.5-36.5); Mean Corpuscular Volume 87 fL (80-100); NEUTROPHILS ABSOLUTE AUTO 4.18 K/mm3 (1.96-9.15); NEUTROPHILS PERCENT AUTO 62 % (41-73); Platelet Count 203 K/mm3 (150-400); RDW Coefficient Variation 18.8 % (11.7-14.2); RDW Standard Deviation 58.4 fL (35.1-46.3); Red Blood Cell Count 4.69 M/mm3 (3.80-5.20); White Blood Cell Count 6.74 K/mm3 (4.00-11.30)
[2021-12-30 15:50] LABS: Albumin, Blood 3.1 g/dL (3.4-5.0); Albumin/Globulin Ratio 0.8 (0.8-1.8); Bilirubin, Total 0.6 mg/dL (0.1-1.0); Bun/Creatinine Ratio 21.2 (12.0-20.0); Calcium, Blood 8.5 mg/dL (8.5-10.1); Creatinine, Blood 1.89 mg/dL (0.40-1.00); Potassium, Blood 3.8 mmol/L (3.5-5.5); Total Protein, Blood 7.1 g/dL (6.4-8.2)
== END 2021-12-30 20:03 | disposition home or self-care (01) ==
LOC: ER 14:16
PROVIDERS: Student in an Organized Health Care Education/Training Program
DX: R07.9 Chest pain, unspecified (principal); I10 Essential (primary) hypertension; R10.9 Unspecified abdominal pain; I13.0 Hypertensive heart and chronic kidney disease with heart failure and stage 1 through stage 4 chronic kidney disease, or unspecified chronic kidney disease; E11.22 Type 2 diabetes mellitus with diabetic chronic kidney disease; N18.4 Chronic kidney disease, stage 4 (severe); I50.9 Heart failure, unspecified; J44.9 Chronic obstructive pulmonary disease, unspecified; I25.10 Atherosclerotic heart disease of native coronary artery without angina pectoris; E78.5 Hyperlipidemia, unspecified; F17.210 Nicotine dependence, cigarettes, uncomplicated; Z95.1 Presence of aortocoronary bypass graft; Z79.84 Long term (current) use of oral hypoglycemic drugs; Z86.718 Personal history of other venous thrombosis and embolism; Z79.899 Other long term (current) drug therapy; Z79.01 Long term (current) use of anticoagulants
CPT/HCPCS: 71046; 76705; 80053; 83880; 84484; 85025; 93005; 93010; A9270; J1940

== ENCOUNTER 2022-01-29 23:00 | Emergency (ER) | payer MEDICARE, OTHER ==
[~2022-01-29] VITALS: Ht 157.5 cm; Wt 49.9 kg
[2022-01-30] MEDS ORDERED: Triamcinolone A15 G3 TOP (00:49)
== END 2022-01-30 01:30 | disposition home or self-care (01) ==
LOC: ER 23:00
DX: L29.9 Pruritus, unspecified (principal); J44.9 Chronic obstructive pulmonary disease, unspecified; I13.10 Hypertensive heart and chronic kidney disease without heart failure, with stage 1 through stage 4 chronic kidney disease, or unspecified chronic kidney disease; I50.9 Heart failure, unspecified; N18.4 Chronic kidney disease, stage 4 (severe); E11.22 Type 2 diabetes mellitus with diabetic chronic kidney disease; I25.10 Atherosclerotic heart disease of native coronary artery without angina pectoris; E78.5 Hyperlipidemia, unspecified; F17.210 Nicotine dependence, cigarettes, uncomplicated; Z79.4 Long term (current) use of insulin; Z88.8 Allergy status to other drugs, medicaments and biological substances; Z88.5 Allergy status to narcotic agent; Z91.040 Latex allergy status; Z95.1 Presence of aortocoronary bypass graft; Z95.5 Presence of coronary angioplasty implant and graft
CPT/HCPCS: 96372; 99282-25; J3301

== ENCOUNTER 2022-06-13 16:55 | Inpatient (IN) | payer MEDICARE, OTHER ==
[~2022-06-13] VITALS: Ht 157.5 cm; Wt 57.4 kg
[~2022-06-13 16:55] MED LIST changes: +Triamcinolone A15 G3 TOP
[2022-06-13] MEDS ORDERED: METO50ER PO (17:04)
[2022-06-13 17:28] LABS: International Normalized Ratio 1.17; Prothrombin Time Results 12.2 Sec (9.7-11.5)
[2022-06-13 17:31] LABS: BASOPHILS ABSOLUTE AUTO 0.03 K/mm3 (0.00-0.23); BASOPHILS PERCENT AUTO 1 % (0-2); EOSINOPHILS ABSOLUTE AUTO 0.17 K/mm3 (0.00-0.68); EOSINOPHILS PERCENT AUTO 3 % (0-6); Hematocrit 42.7 % (33.0-51.0); Hemoglobin 14.2 g/dL (11.5-16.0); IMMATURE GRAN ABSOLUTE AUTO 0.03 K/mm3 (0.00-0.10); IMMATURE GRAN PERCENT AUTO 1 % (0-1); LYMPHOCYTES ABSOLUTE AUTO 1.16 K/mm3 (0.84-5.20); LYMPHOCYTES PERCENT AUTO 19 % (21-46); MONOCYTES ABSOLUTE AUTO 0.59 K/mm3 (0.16-1.47); MONOCYTES PERCENT AUTO 10 % (4-13); Mean Corpuscular HGB 26.6 pg (26.0-34.0); Mean Corpuscular HGB Conc 33.3 g/dL (31.5-36.5); Mean Corpuscular Volume 80 fL (80-100); NEUTROPHILS ABSOLUTE AUTO 4.11 K/mm3 (1.96-9.15); NEUTROPHILS PERCENT AUTO 68 % (41-73); Platelet Count 165 K/mm3 (150-400); RDW Coefficient Variation 20.1 % (11.7-14.2); RDW Standard Deviation 56.8 fL (35.1-46.3); Red Blood Cell Count 5.33 M/mm3 (3.80-5.20); White Blood Cell Count 6.09 K/mm3 (4.00-11.30)
[2022-06-13 17:34] LABS: Albumin/Globulin Ratio 0.6 (0.8-1.8); Bilirubin, Total 0.8 mg/dL (0.1-1.0); Calcium, Blood 8.5 mg/dL (8.5-10.1); Creatinine, Blood 1.9 mg/dL (0.40-1.00); Globulin, Blood 4.7 g/dL (2.2-4.0); Potassium, Blood 3.6 mmol/L (3.5-5.5); Total Protein, Blood 7.7 g/dL (6.4-8.2)
[2022-06-13 17:35] LABS: Mean Platelet Volume 11.1 fL (9.1-12.4)
[2022-06-13 22:50] LABS: CPK Creatine Kinase 24 U/L (26-193)
--- NOTE | 2022-06-14 03:40 | NUR ---
SUMMARY NEURO: A/O X4. NO NUMBNESS OR TINGLING. PUPILS EQUAL AND REACTIVE. PT HAS COMPLAINTS OF VIRTIGO, THROBBING GONZALES AND HUMMING IN EARS. NO CT COMPLETED. PT USES CANE DUE TO RECENT UNSTEADY GAIT. CARDIAC: PT IN NSR. SYSTOLIC BP 180'S-150'S. PT STATES BASELINE IS 160'S. NO EDEMA NOTED BUT PT STATES THEY FEEL "PUFFY". PT HAS COMPLAINTS OF CP WHEN SWALLOWING. LUNGS: CLEAR UPPER LOBES, CRACKLES IN BASES. PT STATES THEY WEAR 4L NC AT NIGHT ONLY. PT IS ON 7L HFNC AND DESATS TO 85% WHILE AWAKE ON RA. GI: ACTIVE BOWEL SOUNDS, PT REPORTS NORMAL BOWEL MOVMENTS. PT STATES THEY HAVE LOST >25LBS IN THE LAST THREE MONTHS WITHOUT TRYING. : WNL- VOIDING CLEAR, YELLOW URINE.
[2022-06-14 05:06] LABS: BASOPHILS ABSOLUTE AUTO 0.03 K/mm3 (0.00-0.23); BASOPHILS PERCENT AUTO 1 % (0-2); EOSINOPHILS ABSOLUTE AUTO 0.17 K/mm3 (0.00-0.68); EOSINOPHILS PERCENT AUTO 3 % (0-6); Hematocrit 42.3 % (33.0-51.0); Hemoglobin 13.7 g/dL (11.5-16.0); IMMATURE GRAN ABSOLUTE AUTO 0.02 K/mm3 (0.00-0.10); IMMATURE GRAN PERCENT AUTO 0 % (0-1); LYMPHOCYTES ABSOLUTE AUTO 0.96 K/mm3 (0.84-5.20); LYMPHOCYTES PERCENT AUTO 16 % (21-46); MONOCYTES ABSOLUTE AUTO 0.61 K/mm3 (0.16-1.47); MONOCYTES PERCENT AUTO 10 % (4-13); Mean Corpuscular HGB 26.3 pg (26.0-34.0); Mean Corpuscular HGB Conc 32.4 g/dL (31.5-36.5); Mean Corpuscular Volume 81 fL (80-100); Mean Platelet Volume 10.8 fL (9.1-12.4); NEUTROPHILS ABSOLUTE AUTO 4.11 K/mm3 (1.96-9.15); NEUTROPHILS PERCENT AUTO 70 % (41-73); Platelet Count 165 K/mm3 (150-400); RDW Standard Deviation 58.1 fL (35.1-46.3)
[2022-06-14 05:34] LABS: Albumin, Blood 2.9 g/dL (3.4-5.0); Albumin/Globulin Ratio 0.7 (0.8-1.8); Bilirubin, Total 0.7 mg/dL (0.1-1.0); Bun/Creatinine Ratio 18.4 (12.0-20.0); Calcium, Blood 8.3 mg/dL (8.5-10.1); Creatinine, Blood 2.01 mg/dL (0.40-1.00); Globulin, Blood 4.4 g/dL (2.2-4.0); Potassium, Blood 3.9 mmol/L (3.5-5.5); Total Protein, Blood 7.3 g/dL (6.4-8.2)
--- NOTE | 2022-06-14 06:52 | NUR ---
PT REFUSING PRN ANTIHYPERTENSIVE AT THIS TIME DUE TO BASELINE SYSTOLIC BEING IN THE 160'S
--- NOTE | 2022-06-14 16:53 | NUR ---
SHIFT SUMMARY PT REMAINS ALERT AND ORIENTED. PT TITRATED FROM 7L NC DOWN TO 3L NC WITH SATS>90%. HR HAS BEEN NSR. BP IMPROVED. PT STATES FEELING LIKE SHE HAS "VERTIGO". PT ABLE TO STAND AND AMBULATE TO BATHROOM WITH MINIMAL ASSISTANCE. WILL CONTINUE TO MONITOR AND REPORT TO ONCOMING RN
[2022-06-15 04:25] LABS: BASOPHILS ABSOLUTE AUTO 0.03 K/mm3 (0.00-0.23); BASOPHILS PERCENT AUTO 0 % (0-2); EOSINOPHILS ABSOLUTE AUTO 0.17 K/mm3 (0.00-0.68); EOSINOPHILS PERCENT AUTO 2 % (0-6); Hematocrit 41.1 % (33.0-51.0); Hemoglobin 13.3 g/dL (11.5-16.0); IMMATURE GRAN ABSOLUTE AUTO 0.01 K/mm3 (0.00-0.10); IMMATURE GRAN PERCENT AUTO 0 % (0-1); LYMPHOCYTES ABSOLUTE AUTO 0.95 K/mm3 (0.84-5.20); LYMPHOCYTES PERCENT AUTO 14 % (21-46); MONOCYTES ABSOLUTE AUTO 0.61 K/mm3 (0.16-1.47); MONOCYTES PERCENT AUTO 9 % (4-13); Mean Corpuscular HGB 26.3 pg (26.0-34.0); Mean Corpuscular HGB Conc 32.4 g/dL (31.5-36.5); Mean Corpuscular Volume 81 fL (80-100); Mean Platelet Volume 10.4 fL (9.1-12.4); NEUTROPHILS ABSOLUTE AUTO 5.27 K/mm3 (1.96-9.15); NEUTROPHILS PERCENT AUTO 75 % (41-73); Platelet Count 177 K/mm3 (150-400); RDW Standard Deviation 57.7 fL (35.1-46.3); Red Blood Cell Count 5.05 M/mm3 (3.80-5.20); White Blood Cell Count 7.04 K/mm3 (4.00-11.30)
[2022-06-15 04:46] LABS: Bun/Creatinine Ratio 21.4 (12.0-20.0); Calcium, Blood 8.2 mg/dL (8.5-10.1); Creatinine, Blood 2.01 mg/dL (0.40-1.00); Potassium, Blood 3.5 mmol/L (3.5-5.5)
--- NOTE | 2022-06-15 05:55 | NUR ---
SHIFT SUMMARY PT A&Ox4, CALLS AND COMMUNICATES NEEDS APPROPRIATELY. VSS, SpO2> 92% 3L NC, DENIES SOB, SINUS 80's. BP ELEVATED, MANAGED PER EMAR, PT WITH MILD CHEST DISCOMFORT AND DIZZINESS ONCE THIS SHIFT WHEN UP TO BATHROOM, PAIN AND DIZZINESS WENT AWAY ONCE BACK TO BED. PT ABLE TO AMBULATE TO BATHROOM WOTH SBA AND FWW, CONTINENT OF BOWEL AND URINE. NO OTHER EVENTS THIS SHIFT, WILL REPORT TO DAY SHIFT RN.
[2022-06-15] MEDS ORDERED: MOTION RELIEF25 MG PO (12:45)
--- NOTE | 2022-06-15 14:35 | NUR ---
DISCHARGE INSTRUCTIONS PROVIDED TO PT. PT EDUCATED ON MEDICATION CHANGES. ALL QUESTIONS ANSWERED. BHARAHT IN TO PROVIDE PORTABLE HOME O2. PT TAKEN OUT BY LEORA
== END 2022-06-15 14:15 | disposition home or self-care (01) | DRG 291 ==
LOC: ER 16:55 → PCU 19:30
PROVIDERS: Emergency Medicine; Internal Medicine; ADMIT Internal Medicine
PROC: 3E02340 Introduction of Influenza Vaccine into Muscle, Percutaneous Approach (ICD-10-PCS; principal; 2022-06-13)
PROC: 5A0935A Assistance with Respiratory Ventilation, Less than 24 Consecutive Hours, High Flow/Velocity Cannula (ICD-10-PCS; 2022-06-14)
DX: I13.0 Hypertensive heart and chronic kidney disease with heart failure and stage 1 through stage 4 chronic kidney disease, or unspecified chronic kidney disease (principal); I50.33 Acute on chronic diastolic (congestive) heart failure; N18.4 Chronic kidney disease, stage 4 (severe); J96.11 Chronic respiratory failure with hypoxia; I16.0 Hypertensive urgency; I73.00 Raynaud's syndrome without gangrene; I70.1 Atherosclerosis of renal artery; R55 Syncope and collapse; J44.9 Chronic obstructive pulmonary disease, unspecified; I25.10 Atherosclerotic heart disease of native coronary artery without angina pectoris; E11.22 Type 2 diabetes mellitus with diabetic chronic kidney disease; E11.51 Type 2 diabetes mellitus with diabetic peripheral angiopathy without gangrene; R42 Dizziness and giddiness; E87.6 Hypokalemia; I27.20 Pulmonary hypertension, unspecified; E78.00 Pure hypercholesterolemia, unspecified; M19.90 Unspecified osteoarthritis, unspecified site; F41.9 Anxiety disorder, unspecified; E78.1 Pure hyperglyceridemia; F17.210 Nicotine dependence, cigarettes, uncomplicated; R94.31 Abnormal electrocardiogram [ECG] [EKG]; I71.9 Aortic aneurysm of unspecified site, without rupture; Z23 Encounter for immunization; Z88.8 Allergy status to other drugs, medicaments and biological substances; Z99.81 Dependence on supplemental oxygen; Z98.890 Other specified postprocedural states; Z88.5 Allergy status to narcotic agent; Z88.1 Allergy status to other antibiotic agents; Z91.040 Latex allergy status; Z79.899 Other long term (current) drug therapy; Z95.1 Presence of aortocoronary bypass graft; Z79.02 Long term (current) use of antithrombotics/antiplatelets; Z79.891 Long term (current) use of opiate analgesic; Z79.01 Long term (current) use of anticoagulants; Z79.51 Long term (current) use of inhaled steroids; Z86.718 Personal history of other venous thrombosis and embolism; Z86.16 Personal history of COVID-19; Z87.01 Personal history of pneumonia (recurrent); Z95.5 Presence of coronary angioplasty implant and graft; Z90.710 Acquired absence of both cervix and uterus; Z90.721 Acquired absence of ovaries, unilateral
CPT/HCPCS: 36415; 71045; 80048; 80053; 82550; 82947; 83690; 83880; 84484; 85025; 85610; 90686; 93005; 93010; 93975; 94640; 94664; 94761; 94762; 96372-59; 96374; 96375; 99285-25; A9270; G0008; J0360; J1644; J1940; J2405; J3010

== ENCOUNTER 2022-06-23 17:34 | Emergency (ER) | payer MEDICARE, OTHER ==
[~2022-06-23] VITALS: Ht 157.5 cm; Wt 54.0 kg
[2022-06-23 18:15] LABS: BASOPHILS ABSOLUTE AUTO 0.04 K/mm3 (0.00-0.23); BASOPHILS PERCENT AUTO 1 % (0-2); EOSINOPHILS ABSOLUTE AUTO 0.23 K/mm3 (0.00-0.68); EOSINOPHILS PERCENT AUTO 3 % (0-6); Hematocrit 47.3 % (33.0-51.0); Hemoglobin 15.3 g/dL (11.5-16.0); IMMATURE GRAN ABSOLUTE AUTO 0.03 K/mm3 (0.00-0.10); IMMATURE GRAN PERCENT AUTO 0 % (0-1); LYMPHOCYTES ABSOLUTE AUTO 1.71 K/mm3 (0.84-5.20); LYMPHOCYTES PERCENT AUTO 22 % (21-46); MONOCYTES ABSOLUTE AUTO 0.85 K/mm3 (0.16-1.47); MONOCYTES PERCENT AUTO 11 % (4-13); Mean Corpuscular HGB 26.2 pg (26.0-34.0); Mean Corpuscular HGB Conc 32.3 g/dL (31.5-36.5); Mean Corpuscular Volume 81 fL (80-100); Mean Platelet Volume 10.2 fL (9.1-12.4); NEUTROPHILS ABSOLUTE AUTO 5.11 K/mm3 (1.96-9.15); NEUTROPHILS PERCENT AUTO 64 % (41-73); Platelet Count 248 K/mm3 (150-400); RDW Coefficient Variation 19.9 % (11.7-14.2); RDW Standard Deviation 57.1 fL (35.1-46.3); Red Blood Cell Count 5.85 M/mm3 (3.80-5.20); White Blood Cell Count 7.97 K/mm3 (4.00-11.30)
[2022-06-23 18:30] LABS: Albumin, Blood 3.4 g/dL (3.4-5.0); Albumin/Globulin Ratio 0.7 (0.8-1.8); Bilirubin, Total 0.6 mg/dL (0.1-1.0); Bun/Creatinine Ratio 26.2 (12.0-20.0); Calcium, Blood 8.7 mg/dL (8.5-10.1); Creatinine, Blood 1.6 mg/dL (0.40-1.00); Globulin, Blood 5.2 g/dL (2.2-4.0); Potassium, Blood 3.9 mmol/L (3.5-5.5); Total Protein, Blood 8.6 g/dL (6.4-8.2)
== END 2022-06-23 20:03 | disposition left against medical advice (07) ==
LOC: ER 17:34
PROVIDERS: Physician Assistant
DX: R07.9 Chest pain, unspecified (principal); I10 Essential (primary) hypertension; Z53.21 Procedure and treatment not carried out due to patient leaving prior to being seen by health care provider
CPT/HCPCS: 36415; 71046; 80053; 84484; 85025

== ENCOUNTER 2022-09-23 09:04 | Inpatient (IN) | payer MEDICARE, OTHER ==
[~2022-09-23] VITALS: Ht 157.5 cm; Wt 57.7 kg
[~2022-09-23 09:04] MED LIST changes: +CATAPRES0.1 MG PO; +Cyclobenzaprine5 MG PO; +ERGO50000 PO; +HYDHCL25 PO; -HYDRA25 PO; +HYDRA50 PO; +IPRAT-ALBUT 0.5-3 ML INH; +OXYC10TA19 PO; -OXYC5 PO
--- NOTE | 2022-09-23 12:00 | NUR ---
PT ARRIVAL... PT ARRIVED TO THE ROOM AT 1140 FROM THE ON AIR TALENT. SHE HAS A RIGHT GROIN SITE WHICH IS STABLE. THE PT IS A&Ox4 AND SLEEPY. SHE IS C/O OF 10/10 RIGHT FLANK PAIN AND IS HYPERTENSIVE WITH SBPs IN THE 190'S-200'S. THE PT IS VERY ANXIOUS AND KEEPS ASKING FOR PAIN MEDICATION. SHE ARRIVED TO THE UNIT ON 4L NC WITH O2 SATS >90% L/S WHEEZES T/O DIM IN THE BASES SHE HAS A MOIST NONPRODUCTIVE COUGH. SHE IS ALSO C/O OF NAUSEA WITH 1 EPISODE OF 100MLS OF EMESIS. THE PT STARTED TO C/O OF "CHEST PRESSURE" AN EKG WAS DONE WHICH SHOWED NO CHANGES PER PROVIDER. THE PT WAS GIVEN 50MCG IV FENTANYL THE PT QUICKLY FELL ASLEEP. THE WOKE EASILY. SHE WAS STARTED ON PO MEDICATIONS. WILL CONTINUE TO MONITOR.
[2022-09-23 12:18] LABS: Hematocrit 46.9 % (33.0-51.0); Hemoglobin 15.4 g/dL (11.5-16.0)
[2022-09-23 12:45] LABS: Bun/Creatinine Ratio 21.9 (12.0-20.0); Calcium, Blood 9.1 mg/dL (8.5-10.1); Creatinine, Blood 2.19 mg/dL (0.40-1.00)
--- NOTE | 2022-09-23 17:33 | NUR ---
SHIFT SUMMARY.... NO ACUTE NEGATIVE CHANGES ASSESSED SINCE PREVIOUS NOTED. THE PT'S PAIN IS CONTROLLED WELL HER BLOOD PRESSURE. THE PT'S RIGHT GROIN SITE IS STABLE WITH NO BLEEDING, SWELLING OR HEMATOMA NOTED. THE PT IS ABLE TO SIT UP IN BED WITHOUT ISSUE. DISTAL PULSES ARE PALPABLE. WILL CONITNUE TO MONITOR UNTIL REPORT IS GIVEN TO ONCOMING RN.
--- NOTE | 2022-09-23 20:07 | NUR ---
PATIENT SLEEPING AWAKENS TO SLIGHT STIMULI. VERBALIZED GOOD PAIN RELIEF WITH FENTANYL IV. RIGHT GROIN SITE WITH DRESSING CD&I WITH NO SWELLING OR OOZING SEEN. BIOX 88-93% ON 6L/NC. RESP EVEN AND UNLABORED. PATIENT WILL BE TRANSFERRING TO ROOM 360. WILL CALL REPORT TO SHANNON BLOUNT
--- NOTE | 2022-09-23 21:42 | NUR ---
TRANSFER NOTE PT CAME TO FLOOR FROM THE ICU POST RENAL ARTERY STENT PLACEMENT. VSS. DRSNG OF RIGHT GROIN INTACT - NO NOTED DRAINAGE. ORIENTED X 4. O2 PER NC AT 6L/MIN. CALL LIGHT IN REACH.
--- NOTE | 2022-09-24 04:00 | NUR ---
[employer] TECHNICIAN SUMMARY BP ELEVATED OTHERWISE VSS. HAS BEEN RESTING QUIETLY WITH 02 AT 6L/MIN PER NC. DRESSING OF RIGHT GROIN INTACT. PT ASYMPTOMATIC, NO C/O PAIN. CALL LIGHT IN REACH. WILL CONTINUE TO MONITOR
[2022-09-24 04:51] LABS: Hematocrit 41.1 % (33.0-51.0); Hemoglobin 13.3 g/dL (11.5-16.0); Mean Corpuscular HGB 29.9 pg (26.0-34.0); Mean Corpuscular HGB Conc 32.4 g/dL (31.5-36.5); Mean Corpuscular Volume 92 fL (80-100); Mean Platelet Volume 10.6 fL (9.1-12.4); Platelet Count 187 K/mm3 (150-400); RDW Standard Deviation 61.5 fL (35.1-46.3); Red Blood Cell Count 4.45 M/mm3 (3.80-5.20); White Blood Cell Count 8.06 K/mm3 (4.00-11.30)
[2022-09-24 05:15] LABS: Albumin, Blood 3.2 g/dL (3.4-5.0); Albumin/Globulin Ratio 0.7 (0.8-1.8); Bilirubin, Total 0.5 mg/dL (0.1-1.0); Bun/Creatinine Ratio 19.8 (12.0-20.0); Calcium, Blood 8.9 mg/dL (8.5-10.1); Creatinine, Blood 2.88 mg/dL (0.40-1.00); Globulin, Blood 4.4 g/dL (2.2-4.0); Potassium, Blood 4.1 mmol/L (3.5-5.5); Total Protein, Blood 7.6 g/dL (6.4-8.2)
[2022-09-24] MEDS ORDERED: GUANFACINE HCL2 M2 PO (15:45)
--- NOTE | 2022-09-24 19:20 | NUR ---
PT ALERT NO S/S OF ACUTE DISTRESS. SAFETY MEASURES IN PLACE REPORT GIVEN TO ON COMING NURSE.
[2022-09-25 04:57] LABS: Hematocrit 41.5 % (33.0-51.0); Hemoglobin 13.3 g/dL (11.5-16.0); Mean Corpuscular HGB 29.6 pg (26.0-34.0); Mean Corpuscular Volume 92 fL (80-100); Mean Platelet Volume 10.4 fL (9.1-12.4); Platelet Count 181 K/mm3 (150-400); RDW Coefficient Variation 17.4 % (11.7-14.2); RDW Standard Deviation 59.9 fL (35.1-46.3); Red Blood Cell Count 4.49 M/mm3 (3.80-5.20); White Blood Cell Count 8.12 K/mm3 (4.00-11.30)
[2022-09-25 05:14] LABS: Albumin, Blood 3.3 g/dL (3.4-5.0); Anion Gap 8 mmol/L (6-16); Blood Urea Nitrogen 77 mg/dL (8-24); Bun/Creatinine Ratio 21.9 (12.0-20.0); CO2, Blood 25 mmol/L (21-32); Calcium, Blood 8.6 mg/dL (8.5-10.1); Chloride, Blood 103 mmol/L (98-108); Creatinine, Blood 3.51 mg/dL (0.40-1.00); Glomerular Filtration Rate 13 (60-); Glucose, Blood 147 mg/dL (70-99); Magnesium, Blood 2.9 mg/dL (1.6-2.4); Phosphorus, Blood 6.9 mg/dL (2.5-4.9); Potassium, Blood 4.4 mmol/L (3.5-5.5); Sodium, Blood 136 mmol/L (136-145)
[2022-09-25 16:35] LABS: Anion Gap 7 mmol/L (6-16); Blood Urea Nitrogen 84 mg/dL (8-24); Bun/Creatinine Ratio 27.1 (12.0-20.0); CO2, Blood 24 mmol/L (21-32); Calcium, Blood 8.5 mg/dL (8.5-10.1); Chloride, Blood 100 mmol/L (98-108); Glomerular Filtration Rate 15 (60-); Glucose, Blood 166 mg/dL (70-99); Magnesium, Blood 2.6 mg/dL (1.6-2.4); Phosphorus, Blood 4.7 mg/dL (2.5-4.9); Potassium, Blood 4.4 mmol/L (3.5-5.5); Sodium, Blood 131 mmol/L (136-145)
--- NOTE | 2022-09-25 19:10 | NUR ---
PT ALERT NO S/S OF ACUTE DISTRESS. SAFETY MEASURES IN PLACE REPORT GIVEN TO ON COMING NURSE.
[2022-09-26 05:24] LABS: Albumin, Blood 2.5 g/dL (3.4-5.0); Anion Gap 5 mmol/L (6-16); Blood Urea Nitrogen 76 mg/dL (8-24); Bun/Creatinine Ratio 28.9 (12.0-20.0); CO2, Blood 23 mmol/L (21-32); Calcium, Blood 7.5 mg/dL (8.5-10.1); Chloride, Blood 108 mmol/L (98-108); Creatinine, Blood 2.63 mg/dL (0.40-1.00); Glomerular Filtration Rate 19 (60-); Glucose, Blood 136 mg/dL (70-99); Magnesium, Blood 2.5 mg/dL (1.6-2.4); Phosphorus, Blood 3.8 mg/dL (2.5-4.9); Potassium, Blood 4.1 mmol/L (3.5-5.5); Sodium, Blood 136 mmol/L (136-145)
--- NOTE | 2022-09-26 06:01 | NUR ---
PT IS A&O4, SB WITH WALKER TO THE BR, 5L NC WITH SATS IN THE LOW 90'S, BP A LITTLE ELEVATED THIS AM, PRN HYDRALAZINE GIVEN, PRN PAIN MEDICATION PER MAR, CONTINUE POC
--- NOTE | 2022-09-26 19:09 | NUR ---
PT ALERT NO S/S OF ACUTE DISTRESS, SAFETY MEASURES IN PLACE REPORT GIVEN TO ON COMING NURSE.
[2022-09-27 05:57] LABS: Albumin, Blood 2.5 g/dL (3.4-5.0); Anion Gap 7 mmol/L (6-16); Blood Urea Nitrogen 78 mg/dL (8-24); Bun/Creatinine Ratio 39.2 (12.0-20.0); CO2, Blood 22 mmol/L (21-32); Calcium, Blood 7.4 mg/dL (8.5-10.1); Chloride, Blood 112 mmol/L (98-108); Creatinine, Blood 1.99 mg/dL (0.40-1.00); Glomerular Filtration Rate 26 (60-); Glucose, Blood 151 mg/dL (70-99); Magnesium, Blood 2.5 mg/dL (1.6-2.4); Phosphorus, Blood 3.3 mg/dL (2.5-4.9); Potassium, Blood 3.6 mmol/L (3.5-5.5); Sodium, Blood 141 mmol/L (136-145)
--- NOTE | 2022-09-27 06:00 | NUR ---
PT IS A&O4, 3L NC, UP SB TO BR, PATIENT HAD 2 EPISODES OF NAUSEA THIS SHIFT, PRN MEDICATION GIVEN PER MAR, CONTINUE POC
--- NOTE | 2022-09-27 19:07 | NUR ---
PT ALERT NO S/S OF ACUTE DISTRESS, SAFETY MEASURES IN PLACE. REPORT GIVEN TO ON COMING NURSE.
[2022-09-28 06:14] LABS: Albumin, Blood 2.6 g/dL (3.4-5.0); Anion Gap 3 mmol/L (6-16); Blood Urea Nitrogen 84 mg/dL (8-24); Bun/Creatinine Ratio 35.6 (12.0-20.0); CO2, Blood 25 mmol/L (21-32); Calcium, Blood 8.3 mg/dL (8.5-10.1); Chloride, Blood 108 mmol/L (98-108); Creatinine, Blood 2.36 mg/dL (0.40-1.00); Glomerular Filtration Rate 21 (60-); Glucose, Blood 133 mg/dL (70-99); Potassium, Blood 5.1 mmol/L (3.5-5.5); Sodium, Blood 136 mmol/L (136-145)
--- NOTE | 2022-09-28 06:32 | NUR ---
PT IS A&O4, SB TO BR, 4L NC SATS IN THE MID 90'S, COMPLAINTS OF AB PAIN AND CRAMPING THIS SHIFT PAIN MEDS GIVEN PER EMAR, PT REFUSED BP MEDS THIS SHIFT, PT EDUCATED ON ORDERED MEDICATIONS, CONTINUE POC
[2022-09-28 10:27] LABS: Source, Urine Clean Catch
[2022-09-28 10:33] LABS: Appearance, Urine Clear (Clear); Bilirubin, Urine Neg (Neg); Blood, Urine Neg (Neg); Color, Urine Yellow (P-Yellow); Glucose Qualitative, Urine Neg (Neg); Ketones, Urine Neg (Neg); Leukocyte Esterase, Urine Neg (Neg); Nitrite, Urine Neg (Neg); Protein, Urine 2+ (Neg); Urobilinogen, Urine NORM (Normal)
[2022-09-28 10:49] LABS: Bacteria Few /hpf; Red Blood Cells, Urine 0-2 /hpf (0-2); Renal Epithelial Rare /hpf (0-Rare); Squamous Epithelial Cells Mod /hpf (Few); White Blood Cells, Urine 0-2 /hpf (0-5)
--- NOTE | 2022-09-28 17:37 | NUR ---
Discharge patient. Granddaughter at the bedside. Pt home oxygen is at bedside. Pt given discharge instructions. Prescription sent to [facility]
== END 2022-09-28 17:26 | disposition home health service (06) | DRG 252 ==
LOC: MHTC 09:04 → ICUW 09:04 → MHTC 09:05 → ICUW 11:47 → MHTC 16:30 → ICUW 16:30 → MEDS 20:47
PROVIDERS: Family Medicine; Internal Medicine; Nurse Practitioner Acute Care; Student in an Organized Health Care Education/Training Program; ADMIT Radiology Diagnostic Radiology
PROC: 04793DZ Dilation of Right Renal Artery with Intraluminal Device, Percutaneous Approach (ICD-10-PCS; principal; 2022-09-23)
PROC: B416YZZ Fluoroscopy of Right Renal Artery using Other Contrast (ICD-10-PCS; 2022-09-23)
PROC: B44 Imaging, Lower Arteries, Ultrasonography (ICD-10-PCS; 2022-09-23)
DX: I16.0 Hypertensive urgency (principal); J96.01 Acute respiratory failure with hypoxia; N17.9 Acute kidney failure, unspecified; I50.32 Chronic diastolic (congestive) heart failure; J44.1 Chronic obstructive pulmonary disease with (acute) exacerbation; I70.1 Atherosclerosis of renal artery; I13.0 Hypertensive heart and chronic kidney disease with heart failure and stage 1 through stage 4 chronic kidney disease, or unspecified chronic kidney disease; N18.30 Chronic kidney disease, stage 3 unspecified; G89.29 Other chronic pain; E11.22 Type 2 diabetes mellitus with diabetic chronic kidney disease; K21.9 Gastro-esophageal reflux disease without esophagitis; E11.51 Type 2 diabetes mellitus with diabetic peripheral angiopathy without gangrene; M54.9 Dorsalgia, unspecified; F17.210 Nicotine dependence, cigarettes, uncomplicated; M19.90 Unspecified osteoarthritis, unspecified site; I25.10 Atherosclerotic heart disease of native coronary artery without angina pectoris; E78.00 Pure hypercholesterolemia, unspecified; I15.0 Renovascular hypertension; B37.31 Acute candidiasis of vulva and vagina; G43.909 Migraine, unspecified, not intractable, without status migrainosus; G47.30 Sleep apnea, unspecified; Z95.1 Presence of aortocoronary bypass graft; Z98.890 Other specified postprocedural states; Z90.710 Acquired absence of both cervix and uterus; Z95.820 Peripheral vascular angioplasty status with implants and grafts; Z88.8 Allergy status to other drugs, medicaments and biological substances; Z91.048 Other nonmedicinal substance allergy status; Z91.040 Latex allergy status; Z86.718 Personal history of other venous thrombosis and embolism; Z88.5 Allergy status to narcotic agent; Z88.1 Allergy status to other antibiotic agents; Z79.51 Long term (current) use of inhaled steroids; Z79.01 Long term (current) use of anticoagulants; Z79.02 Long term (current) use of antithrombotics/antiplatelets; Z79.899 Other long term (current) drug therapy; Z79.891 Long term (current) use of opiate analgesic; Z99.81 Dependence on supplemental oxygen
CPT/HCPCS: 36252; 36415; 37236; 71045; 74176; 76937; 80048; 80053; 80069; 81001; 82947; 83735; 83880; 84484; 85014; 85018; 85027; 93005; 93010; 94640; 94664; 94760; 94761; 94762; 96375; 97116; 97162; 97165; 97530; 99152; 99153; A9270; C1751; C1760; C1769; C1876; C1887; C1894; G0378; J0360; J1644; J2250; J2405; J2720; J2765; J2920; J3010; J7030; J7040; J7050; J7120; Q9967